=== PATIENT | male | born 2000 | race Caucasian/White ===

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

== ENCOUNTER 2025-02-27 11:34 | Observation (INO) | payer OTHER, SELFPAY ==
[2025-02-27] VITALS (16 sets, daily range): BP systolic 106–152; BP diastolic 61–100; PULSE 65–110; RESP 12–24; TEMP 36.6–37.1; O2SAT 99–100; BMI 25.2
--- NOTE | ~2025-02-27 | CT_ITS ---
EXAM: CT abdomen pelvis w con - 02/27/2025 13:15 CDT History: 24 years old Male with lower abdomina pain with bloody stools TECHNIQUE: Multidetector CT of the abdomen and pelvis with intravenous contrast. Coronal and sagitta l reformats were also provided for review. Automatic exposure control was used for this study. CONTRAST: 100 cc of Optiray 350 was used for this study. COMPARISON: None Available. FINDINGS: VISUALIZED CHEST: Visualized lungs are clear. ABDOMEN and PELVIS: LIVER: Subcentimeter hypodensity in the right hepatic lobe, too small to accurately characterize. GALLBLADDER: No calcified gallstones. BILE DUCTS: No dilatation. SPLEEN: Within normal limits. PANCREAS: Within normal limits. ADRENAL GLANDS: Within normal limits. KIDNEYS and URETERS: No hydronephrosis or hydroureter. No nephroureterolithiasis. URINARY BLADDER: Within normal limits. STOMACH and BOWEL: No abnormal bowel wall thickening. No obstruction. Multiple fluid-filled distended loops of small bowel are seen in the right lower quadrant in the pelvis, suggestive of terminal ilei tis. Appendix not visualized. REPRODUCTIVE ORGANS: Within normal limits. Multiple large ileocolic lymph nodes are seen, measuring u p to 2 cm. These are concerning for mesenteric adenitis. MESENTERY/PERITONEAL CAVITY: No free fluid or pneumoperitoneum. LYMPH NODES: No abdominal or pelvic lymphadenopathy. ABDOMINAL WALL: Within normal limits. VASCULATURE: Within normal limits. MUSCULOSKELETAL: Multilevel degenerative changes of the spine. IMPRESSION: Findings concerning for terminal ileitis and mesenteric adenitis, as detailed above. Reviewed, dictated and finalized at location A. IMPRESSION: Findings concerning for terminal ileitis and mesenteric adenitis, as detailed a christ.
--- OUTSIDE RECORDS SUMMARY | 2025-02-27 11:43 | XMS_ITS | Encounter Summary ---
Author Organization [facility] Address [address] [place] [address] Care Team Providers Care Cloth Finishing Range Tender Name Role Phone Felisa Cooper MD Primary Care Provider Nickie gamble Reason for Visit * Reason Onset Date Comments Medication Request 02/09/2018 Encounter Details Date Type Department Care Team (Late st Contact Info) Description 02/09/2018 Telephone [facility] - [facility] [place] [address] Michelle Richmond Medication Request Social History Tobacco Use Types Packs/Day Years Used Date Smoking Tobacco: Never Assessed Sex and Gender Information Value Date Recorded Sex Assigned at Not on file Legal Sex Male 6:[address] Gender Identity Not on file Sexual Orientation Not on file documented as of this encounter Miscellaneous Notes * Telephone Encounter - Felisa Cooper MD - 02/10/2018 12:43 PM CDT Rx for vyvanse 60mg daily orderd X3 for 3 month supply, mailed to home address. FU at [facility]. * Telephone Encounter - Michelle Richmond - 02/09/2018 12:48 PM CDT Mom is calling requesting a refill for Rx lisdexamfetamine (VYVANSE) 60 MG capsule to be mailed to her home at the address of: [address] [place] [id number] Next appt on 03/18/[address] Cooper documented in this encounter Plan of Treatment Not on file documented as of this encounter Visit Diagnoses Not on filedocumented in this encounter Additional Health Concerns Infection Onset Date Last Indicated Resolved Time COVID-19 Under Investigation 01/03/2020 01/03/2020 01/04/2020 12:34 AM CDT documented as of this encounter Care Teams Cloth Finishing Range Tender Relationship Specialty Start Date End Date Felisa Cooper MD Need new address PCP - General 11/28/10 documented as of this encounter
--- OUTSIDE RECORDS SUMMARY | 2025-02-27 11:43 | XMS_ITS | Encounter Summary ---
Author Organization [facility] Address [address] [place] [address] Care Team Providers Care Stonemason Supervisor Name Role Phone Felisa Cooper MD Primary Care Provider Nickie gamble Reason for Visit * Reason Onset Date Comments Question 04/26/2013 Encounter Details Date Type Department Care Team (Late st Contact Info) Description 04/26/2013 Telephone [facility] - [facility] [place] [address] Felisa Cooper MD Need new address Question Social History Tobacco Use Types Packs/Day Years Used Date Smoking Tobacco: Never Assessed Sex and Gender Information Value Date Recorded Sex Assigned at Not on file 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 * Telephone Encounter - Sol Voss - 04/26/2013 9:20 AM CDT MOM wants to update you on how his doing on medication. documented in this encounter Plan of Treatment Not on file documented as of this encounter Visit Diagnoses Not on filedocumented in this encounter Additional Health Concerns Infection Onset Date Last Indicated Resolved Time COVID-19 Under Investigation 01/03/2020 01/03/2020 01/04/2020 12:34 AM CDT documented as of this encounter Care Teams Stonemason Supervisor Relationship Specialty Start Date End Date Felisa Cooper MD Need new address PCP - General 11/28/10 documented as of this encounter
--- OUTSIDE RECORDS SUMMARY | 2025-02-27 11:43 | XMS_ITS | Encounter Summary ---
Author Organization [facility] Address [address] [place] [address] Care Team Providers Care Home Energy Consultant Name Role Phone Felisa Cooper MD Primary Care Provider Nickie gamble Encounter Details Date Type Department Care Team (Late st Contact Info) Description 07/14/2018 Telephone [facility] - [facility] [address] [place] [id number] Ann Agee Social History Tobacco Use Types Packs/Day Years Used Date Smoking Tobacco: Never Assessed Sex and Gender Information Value Date Recorded Sex Assigned at Not on file 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
--- OUTSIDE RECORDS SUMMARY | 2025-02-27 11:43 | XMS_ITS | Clinical Summary ---
Author Organization [facility] Address [address] [place] [address] Care Team Providers Care Curriculum And Assessment Coordinator Name Role Phone Unavailable Primary Care Provider Unavailabl e Social History Tobacco Use Types Packs/Day Years Used Date Smoking Tobacco: Never Assessed Sex and Gender Information Value Date Recorded Sex Assigned at Not on file Legal Sex Male 6:06 PM CDT Gender Identity Not on file Sexual Orientation Not on file Last Filed Vital Signs Vital Sign Reading Time Taken Comments Blood Pressure 106/74 02/21/2015 9:36 AM CDT Pulse 73 02/21/2015 9:36 AM CDT Temperature - - Respiratory Rate - - Oxygen Saturation - - Inhaled Oxygen Concentration - - Weight 43.6 kg (96 lb 2.1 oz) 02/21/2015 9:36 AM CDT Height 156.8 cm (5' 1.75) 02/21/2015 9:36 AM CD T Body Mass Index 17.72 02/21/2015 9:36 AM CDT Plan of Treatment Health Maintenance Due Date Last Done Comments Annual Physical 2005 HPV Vaccines (1 - Male 3-dos e series) 2017 Meningococcal B Vaccine (1 o f 2 - Standard) 2018 Hepatitis C 2020 DTaP, Tdap and Td Vaccines ( 1 - Tdap) 2021 Hepatitis B Vaccines (1 of 3 - 19+ 3-dose series) 2021 COVID-19 Vaccine ( - 2023-2 5 season) 2024 Meningococcal Vaccine Aged Out No chriss cecily eligible based on patient's age to complete this topic Pneumococcal Vaccine: Pediat rics (0 to 5 Years) and At-Risk Patients (6 to 49 Years) Aged Out No longer eligible b ased on patient's age to complete this topic RSV Immunizations Under 20 Months Aged Out No longer eligible based on patient's age to complete this topic
--- OUTSIDE RECORDS SUMMARY | 2025-02-27 11:43 | XMS_ITS | Encounter Summary ---
Author Organization [facility] Address [address] [facility] [address] Care Team Providers Care Piping Manager Name Role Phone Felisa Cooper MD Primary Care Provider Nickie gamble Encounter Details Date Type Department Care Team (Late st Contact Info) Description 07/14/2018 Telephone [facility] - [facility] [place] [address] Ann Agee Social History Tobacco Use Types Packs/Day Years Used Date Smoking Tobacco: Never Assessed Sex and Gender Information Value Date Recorded Sex Assigned at Not on file Legal Sex Male 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 He is doing well on vyvanse 60mg per day, no SE's. I cancelled the previous Rx's dated for June and July and reordered Rx's for today and in 30 days. The Rx's are in the mail to go out today. STANT THERAPY AIDE * Telephone Encounter - Ann Agee - 07/14/2018 12:01 PM CST Barry Schofield's, 18 y.o. male, mother is calling with concerns but would not any details just wanted to talk to Dr. Cooper about [place] Instructed that provider will call back at their earliest convenience. STANT THERAPY AIDE documented in this encounter Plan of Treatment Not on file documented as of this encounter Visit Diagnoses Not on filedocumented in this encounter Additional Health Concerns Infection Onset Date Last Indicated Resolved Time COVID-19 Under Investigation 01/03/2020 01/03/2020 01/04/2020 12:34 AM CDT documented as of this encounter Care Teams Piping Manager Relationship Specialty Start Date End Date Felisa Cooper MD Need new address PCP - General 11/28/10 documented as of this encounter
--- OUTSIDE RECORDS SUMMARY | 2025-02-27 11:43 | XMS_ITS | Encounter Summary ---
Author Organization [facility] Address [address] [place] [address] Care Team Providers Care Industrial Electrical Technician Name Role Phone Felisa Cooper MD Primary Care Provider Nickie gamble Reason for Visit * Reason Onset Date Comments Medication Problem 01/11/2018 Encounter Details Date Type Department Care Team (Late st Contact Info) Description 01/11/2018 Telephone [facility] - 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 Preferred alternatives include: LEVA ALBUTEROL AER ACT, PROAIR HFA AER, PROAIR REPSI AER. Last [facility] 03-18-2017 documented in this encounter Plan of Treatment Not on file documented as of this encounter Visit Diagnoses Not on filedocumented in this encounter Additional Health Concerns Infection Onset Date Last Indicated Resolved Time COVID-19 Under Investigation 01/03/2020 01/03/2020 01/04/2020 12:34 AM CDT documented as of this encounter Care Teams Industrial Electrical Technician Relationship Specialty Start Date End Date Felisa Cooper MD Need new address PCP - General 11/28/10 documented as of this encounter
--- OUTSIDE RECORDS SUMMARY | 2025-02-27 11:43 | XMS_ITS | Encounter Summary ---
Author Organization [facility] Address [address] [place] [address] Care Team Providers Care Pathology Laboratory Aides Teacher Name Role Phone Felisa Cooper MD Primary Care Provider Nickei gamble Reason for Visit * Reason Onset Date Comments MEDICATION REFILL 07/27/2012 Encounter Details Date Type Department Care Team (Late st Contact Info) Description 07/27/2012 Telephone [facility] - [facility] [place] [address] Felisa Cooper MD Need new address MEDICATION REFILL Social History Tobacco Use Types Packs/Day Years Used Date Smoking Tobacco: Never Assessed Sex and Gender Information Value Date Recorded Sex Assigned at Not on file Legal Sex Male 6:59 AM LETTER OF CREDIT DOCUMENT EXAMINER Gender Identity Not on file Sexual Orientation Not on file documented as of this encounter Miscellaneous Notes * Telephone Encounter - Jessica Coppola DO - 07/27/2012 9:48 AM CST 3 month scripts sent to address. I called mother and left message for her to make appt a few weeks before last dose in order to get refills. ER OF CREDIT DOCUMENT EXAMINER * Telephone Encounter - Pappademos, Dolley - 07/27/2012 9:23 AM CST Needs refill on vyvanase Please mail : [place] [phone] for 3mos. ER OF CREDIT DOCUMENT EXAMINER documented in this encounter Plan of Treatment Not on file documented as of this encounter Visit Diagnoses Diagnosis ADHD (attention deficit hyperactivity disorder)- Primary Attention deficit disorder with hyperactivity documented in this encounter Additional Health Concerns Infection Onset Date Last Indicated Resolved Time COVID-19 Under Investigation 01/03/2020 01/03/2020 01/04/2020 12:34 AM CDT documented as of this encounter Care Teams Pathology Laboratory Aides Teacher Relationship Specialty Start Date End Date Felisa Cooper MD Need new address PCP - General 11/28/10 documented as of this encounter
--- OUTSIDE RECORDS SUMMARY | 2025-02-27 11:43 | XMS_ITS | Clinical Summary ---
Author Organization 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,non-owned Affiliates and Associated Physician Practices is amultiple site organization consisting of ambulatory clinics and hospital sitesin [place], [place], [place] and [place]. This disclosure is being madepursuant to the Care Everywhere program and may not contain all information available regarding this patient. Last updated 18.[facility] Allergies Active Allergy Reactions Criticality Noted Date Comments Methylphenidate Hcl 12/23/2010 Sleep problems Medications * Be aware that medications may not be up to date on this document. Alwaysverify current medications with the patient. famotidine (PEPCID) 20 MG tabletIndication s:Gastroesophage al reflux disease without esophagitis Take 1 Tab by mouth 2 times daily 60 Tab 1 5 Active methylphenidate (RITALIN) 5 MG tablet Take 1 Tab by mouth every afternoon 30 Tab 0 6 Active methylphenidate (RITALIN) 5 MG tablet Take 1 Tab by mouth every afternoon 30 Tab 0 6 Active methylphenidate (RITALIN) 5 MG tablet Take 1 Tab by mouth every afternoon 30 Tab 0 6 Active benzoyl peroxide (BENZOYL PEROXIDE) 5 % washIndications: Acne, unspecified acne type Apply to affected area once daily Use as directed. 1 Bottle 7 Active albuterol HFA (PROVENTIL;DICK ARNAV;PROAIR) 108 (90 Base) MCG/ACT inhalerIndicatio ns:Asthma, exercise induced (HCC) Inhale 2 puffs by mouth every 4 hours as needed for Shortness of Breath, Wheezing or Cough (May also take 2 puffs 30 min prior to exercise) 2 Inhaler 3 9 Active Active Problems Problem Noted Date Diagnosed Date Vomiting, unspecified 10/12/2019 Assessment & Plan (10/12/2019 2:45 PM BARGE WORKER): Assessment: Patient c/o vomiting daily one to five times a day for 2 weeks with accompanying headache, sore throat, abdominal pain, and diarrhea with intermittent constipation. Pt also c/o mild intermittent left lower chest pain in rib area for last 2 weeks but no difficulty breathing, no hx of trauma. Pt with normal UOP, has been out with friends for extended periods of time during last 2 weeks, has been eating fast food, and on exam today appears well hydrated, has moist MM, no tachycardia, no weight loss, but mild LL abdominal pain and reproducible pain with palpation of left lower chest. Pt with hx of depression, bipolar d/o, ADHD, and defiant relationship with mother. He is also not doing well in school and seems to not want to attend school or complete homework. Pt's mother has concerns that he is fine when with friends but may be using sx's to avoid going to school. No hx of fever, URI sx's, change in diet, cigs/ETOH/drugs. Per mother pt had neg strep test at another medical office last week, and had normal labs per psychiatry 1-2 weeks ago. Pt is on vyvanse, prozac, and lithium (dose was increased 3-4 weeks ago). Plan: - [place] diet, hold dairy foods, monitor sx's and hydration status. - Stool culture and O&P ordered - Abdominal and Chest X-ray - Follow up on strep test results and labs from other clinic/psychiatry. Mother declined further lab work today. - FU with psychiatry and consider readjusting meds/lithium dose. - Continue counseling, mother and pt to work on relationship, pt to catch up on school work and school attendance. - FU in 1-2 weeks Mental and behavioral problem 06/01/2019 Assessment & Plan (07/06/2019 2:10 PM BARGE WORKER): Pt with recent [facility] inpatient Tx for SI, anxiety, anger management, now doing well with outpatient Tx. He is followed by psychiatry (in [place]), private counselor (in [place]), and school psychologist. He was dx'd with bipolar d/o and is currently on lithium and prozac, in addition to vyvanse for ADHD. His psychiatrist is going to manage all medications including vyvanse (which was reduced to 40mg qday) and next FU is Aug 2019. Pt is back in school and doing well academically and socially. Pt feels well today and is happy with home and school. Assessment & Plan (06/01/2019 3:31 PM CDT): I spoke with pt's mother on phone today and she wanted to update that in the past month Barry was having increased difficulty with anxiety, anger management, and had thoughts of SI. He saw a psychiatrist as an outpatient, was placed on lexapro but became more emotional. He was taken to [facility] for inpatient treatment and was there for 1 week, lexapro was d/c'd and he is now on prozac, doing much better since, and will be following up with a different psychiatrist as an outpatient. He also continues with counseling and regular meetings with psychologist at school, is also still on vyvanse. Mother will schedule FU appt in our clinic in 1 month for Men B and influenza vaccines, will also give update on pt's progress at that time. Episode of abnormal behavior 01/19/2019 Overview (04/06/2019): 01/19/19 Last week during an exam, pt felt numbness in Rt hand (dominant hand) and for few seconds didn't feel like himself, he was alert, awake, and remembers the entire episode, and didn't fee tired or sleepy after. He has been feeling normal with normal activity since then and mother agrees. He stopped his vyvanse 70mg but has been on 60mg daily since then. He has been on vyvanse 70mg for past 2 months and thinks the episode was related to the higher dose. He does have a hx of anxiety and sees a counselor regularly, is also scheduled for psychiatry eval this summer. Exam today wnl. Pt and mother prefer to cont on 60mg vyvanse, declined neuro eval and imaging at this point, but will consider if episode happens again. Plan FU for WCC in 2-3 months but if episode occurs again needs to FU isabel. 04/06/19 Pt had WCC and per pt and mother there have been no more episodes. Assessment & Plan (04/06/2019 10:27 PM CDT): No further episodes. Will continue to monitor. Assessment & Plan (01/19/2019 10:59 AM CDT): Last week during an exam, pt felt numbness in Rt hand (dominant hand) and for few seconds didn't feel like himself, he was alert, awake, and remembers the entire episode, and didn't fee tired or sleepy after. He has been feeling normal with normal activity since then and mother agrees. He stopped his vyvanse 70mg but has been on 60mg daily since then. He has been on vyvanse 70mg for past 2 months and thinks the episode was related to the higher dose. He does have a hx of anxiety and sees a counselor regularly, is also scheduled for psychiatry eval this summer. Exam today wnl. Pt and mother prefer to cont on 60mg vyvanse, declined neuro eval and imaging at this point, but will consider if episode happens again. Plan FU for WCC in 2-3 months but if episode occurs again needs to FU isabel. Acne 03/18/2017 Assessment & Plan (03/18/2017 9:33 AM CDT): Skin care reviewed, benzoyl peroxide wash Rx ordered. FU if pers sx's. Pectus carinatum 04/03/2016 Assessment & Plan (10/09/2016 12:15 PM BARGE WORKER): Pt saw CT surgery 03/2016, CXR wnl, consider brace or surgery prn increased sx's. Pt and mother holding off for now but will consider in future, no increased sx's currently. Assessment & Plan (04/03/2016 11:04 AM CDT): Pt with worsening pectus carinatum. It occasionally causes him some chest pain. No trouble breathing. - referral to CT surgery Adopted 03/21/2015 Assessment & Plan (03/21/2015 1:36 PM CDT): Pt recently found out from adopted mother that he was adopted, is dealing with information well per self and adopted mother. He is discussing information with counselor that he meets with weekly, is considering establishing relationship with biological mother and he has already met biological father. Adopted mother is supportive and has a good relationship with pt. Asthma, exercise induced 03/29/2014 Assessment & Plan (03/18/2017 9:45 AM CDT): Sx's well controlled with albuterol prn, Rx RF given, FU if increased sx's or use of albuterol. Assessment & Plan (10/09/2016 12:17 PM BARGE WORKER): Cont prn use for sx's, also rec 2 puffs 30 min prior to exercise, RF Rx ordered. FU if pers sx's. Assessment & Plan (04/03/2016 11:07 AM CDT): No recent exacerbations. He is considering starting track this year. He has albuterol to use prn - continue prn albuterol - monitor symptoms with exercise Assessment & Plan (03/21/2015 1:30 PM CDT): Has not had recent exacerbations, has not needed albuterol in a while, will cont to monitor clinically and may cont albuterol prn. Assessment & Plan (03/29/2014 12:33 PM CDT): Albuterol HFA with aerochamber trial, rec 2 puffs 30 minutes before activity. If sx's persist needs FU. Well child check 04/06/2013 Overview (04/06/2013): Normal growth and development, will monitor weight. Anticipatory guidance discussed, vaccines UTD but rec influenza vaccine when available. FU for next WCC in 1 year. Assessment & Plan (04/06/2019 11:13 PM CDT): Barry Schofield is here for his adolescent well child check and has normal growth with good interval weight gain and normal development, but hx of ADHD. Pt with hx of SA, discussed recs for abstinence and safe sex, pt declined STD testing, mother aware. Menactra #2 and Men B vaccine given. Dental referral for prevention-has dental home PHQ-9: Negative Age appropriate anticipatory guidance provided Return for next well child check; sooner if concerns arise. Assessment & Plan (03/18/2018 9:59 AM CDT): Barry Schofield is here for his adolescent well child check and has normal growth with good interval weight gain and normal development. Immunizations up to date Dental referral for prevention-has dental home Age appropriate anticipatory guidance provided Return for next well child check; sooner if concerns arise. Assessment & Plan (03/18/2017 9:44 AM CDT): Barry Schofield is here for his adolescent well child check and has normal growth with good interval weight gain and normal development. Immunizations up to date Has dental home Age appropriate anticipatory guidance provided Return for next well child check in 1 year; sooner if concerns arise. Assessment & Plan (04/03/2016 11:05 AM CDT): Barry Schofield is here for his adolescent well child check and has normal growth with good interval weight gain and normal development. Immunizations up to date Has dental home Age appropriate anticipatory guidance provided Return for next well child check; sooner if concerns arise. Assessment & Plan (03/21/2015 1:29 PM CDT): Barry Schofield is here for his adolescent well child check and has normal growth and development. Immunizations up to date No RF for heart disease/DM, mother declined lipid screening. Dental referral for prevention Age appropriate anticipatory guidance provided Return for next well child check in 1 year; sooner if concerns arise. Assessment & Plan (03/29/2014 12:34 PM CDT): Barry Schofield is here for his 13 y.o. well child check and has normal growth and development but need to monitor weight. Pt has had decreased appetite this summer whether on or off stimulant medication. Needs HPV after 04/15/14 and rec influenza vaccine in fall. CBC ordered bc pt with hx of bruising (resolved not) and mother with recent ITP and splenectomy. Dental referral for prevention Age appropriate anticipatory guidance provided Return for next well child check in 1 year but rec FU in 3 months for weight check, EIA and ADHD FU. ADHD (attention deficit hyperactivity disorder) 12/03/2010 Assessment & Plan (07/06/2019 2:13 PM BARGE WORKER): Pt was recently dx'd with bipolar d/o and is followed by psychiatry, counselor, and school psychologist. He was placed on lithum and prozac, and his vyvanse dose was changed to 40mg daily. His psychiatrist is going to manage his medications, including vyvanse. Mother will FU with updates prn. Assessment & Plan (04/06/2019 10:22 PM CDT): Barry has been doing well this summer with vyvanse dose of 60mg qday, no SE's, no weight issues, but he has had anger episodes when privileges are taken away. Barry is seeing a counselor every other week and he and his mother feel like the sessions are beneficial, especially with the anger episodes. Psychoeducational testing was done thru school at end of last school year and per pt's mother testing results showed high IQ and no LD, but +attention and executive function difficulty. Barry will be starting jc year in tomorrow with a 504 plan, will be in regular classes but with classroom modifications and his schedule will include a class period every day to help with organization and monitoring of assignment completion. Rec: 1) Continue vyvanse 60mg daily, RF Rx's given for 3 months supply, monitor for SE's. 2) Continue weekly counseling. 3) Consider psychiatry eval if persistent problems with anger or mood issues. 4) Continue 504 plan with classroom modifications. 5) Continue to keep in touch with teachers and monitor grades and school performance. 6) Continue positive reinforcement/privileges (screen time, video games, driving car, etc) for good grades and behavior. 7) FU in 3-6 months. Family lives 45 min away in [place], May call for RF in 3 months if pt doing well and no medication changes needed Assessment & Plan (11/17/2018 2:46 PM CDT): Barry has been on vyvanse 60mg daily for years and was doing well in school and home but recently has been struggling with focusing and turning homework in on time, partially because he feels medication is not working as well as before but also because he is unmotivated and hasn't been making an effort to get assignments turned in on time. He will do the work but just not turn it in. His test grades are better than his homework grades but he is failing most of his classes currently (S[place]i, math, science). He denies medication SE's. He has also been having more behavior issues at home, talking back to his mother and being disrespectful to her rules and concerns about school work. He has friends but doesn't socialize outside of school much, he denies ETOH or drug use. He is adopted and sees his biological mother occasionally, and has no issues with their relationship. He is close to his sister and bother in law (who is a positive male presence for him) and they have tried to help Barry with his school issues and life goals. Barry continues to see his counselor weekly and has good rapport with him, and he is trying to help Barry deal with any social issues and negative interactions with his mother. The counselor has concerns for depression and anxiety. Rec: 1) Increase Vyvanse to 70mg PO qday, monitor for SE's, mother will call to update and discuss RF in 3 weeks. 2) Continue weekly counseling. 3) Psychiatry eval. 4) Psychoeducational testing to be done at school. 5) Discuss with teachers about help with getting grades up, consider tutors, mother to give privileges (screen time, video games, driving car, etc) if grades improve. 6) FU in 3 months. Assessment & Plan (09/07/2018 12:58 PM BARGE WORKER): Pt was off vyvanse last summer, restarted few months ago and doing well, no SE's, had WCC 03/18/18 and no new issues. Family lives 45 min away, RF Rx vyvanse 60mg qday x3 sent to home today, FU in 3 months. Assessment & Plan (11/04/2017 11:55 AM CDT): Doing very well on vyvanse 60mg qday, no SE's, no behavior problems/attention issues/social issues at home or school, pt getting good grades. Will cont with current Rx, 3 month supply given today. Pt to also cont FU with counselor, usually sees few times per month for any anxiety or social concerns. Mother to call back in 3 months with update and Rx RF, FU in 6 months for appt. 11/04/17 Pt wanted to have trial off medication for last 3-4 weeks, but grades and school performance went down, no behavior concerns at school or home. Pt met with counselor yesterday and will continue to work on study skills, organizational skills and behavior modifications. Rec restarting vyvanse 60mg PO qday (Pt has 1 month supply of medication left, 3 month supply mailed to mother today, family lives about 45 min away), also recommend peer tutor at school to receive more 1 on 1 instruction to catch up with material that pt struggled with the last few weeks. FU for WCC and ADHD FU in 3 months. Assessment & Plan (10/09/2016 12:27 PM BARGE WORKER): Doing very well in school and home on vyvanse 60mg. No medication SE's, no behavioral or social issues, grades are good, and pt is happy. Pt with occasional chest pain, usually with anxiety or activity, exam today wnl and pt without pain. Pt will try calming/relaxation techniques and will restart albuterol prn for EIA. If still pers chest pain rec EKG, future order placed and mother will call if pers sx's. 3 month supply of vyvanse ordered and rx's given to mother. She will call back in 3 months for update/RF. FU in 6 months for WCC and ADHD FU. Assessment & Plan (04/03/2016 11:07 AM CDT): 15 year old with ADHD. Currently well controlled with vyvanse. He denies any side effects. Mom has not used the lunchtime ritalin. She has it at home and is going to decide if he needs it once school starts. - provided 3 refills of vyvanse - mom follows up by phone in 3 months and will schedule a med check in 6 months. Assessment & Plan (10/03/2015 9:36 AM BARGE WORKER): Behavior and school are doing well. Decreased concentration while doing homework in the afternoon. No current side effects. - Continue 60 mg vyvanse daily - Add 5 mg ritalin in the afternoon to help with homework time - Mom will call if any problems. - Call in 3 months for refills and return to clinic in March school manager starts Assessment & Plan (03/21/2015 1:28 PM CDT): Pt doing well on vyvanse 60mg PO qday, weight stable, no SE's, grades were good at end of year, no behavioral issues. Pt still meeting with couselor every week and sessions going well. Plan to cont current dose of vyvanse, 3 month Rx given, FU in 3-4 months, sooner if issues or concerns. Assessment & Plan (12/13/2014 12:27 PM CDT): Pt still doing well on vyvanse 60mg every AM, weight stable, no new side effects but rec monitor occasional neck movements and mother to monitor with 1 week trial off vyvanse. Pts grades in school are good but he has had few episodes of increased anger. Per mother counseling/therapist has helped and he will continue ever other week. 3 month supply of vyvanse given, FU in 3 months for WCC and ADHD FU, mother to call sooner if concerns. Assessment & Plan (2014 12:32 PM BARGE WORKER): Doing well on vyvanse 60mg daily, no SE's, dong well in school, and no behavioral issues, weight also improved. Pt may have new onset tic but per pt and mom does not appear to be associated with vyvanse at this time, may have to consider a longer term trial off medication for more than few days but mother. Pt's anger issues also better controlled now and pt cont with weekly tx sessions with psychologist/counselor/therapist. Rx RF for vyvanse given for 3 month supply. FU in 3-6months. Assessment & Plan (03/29/2014 12:27 PM CDT): Doing well on vyvanse 60mg daily, no SE's, no behavior problems at home this summer. Pt's anger issues also better controlled now and pt cont with weekly tx sessions with psychologist. Rx RF for vyvanse given for 3 month supply. FU for appt in 3 months, need to monitor weight. Resolved Problems Problem Noted Date Diagnosed Date Resolved Date Cough 01/03/2020 01/31/2020 Assessment & Plan (01/03/2020 3:17 PM CDT): Barry Schofield is a 19 year old male who presented with 3-4 days of sore thorat, emesis, diarrhea, cough and shortness of breath. T max of 99.4. 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 On exam, erythema was noted in posterior oropharnyx so strep swab was ordered. Strep was negative. He was discharged home with supportive care measures and letter given for work to be off till 10 days of start of symptoms AND 3 days of resolution of symptoms. Folliculitis 10/09/2016 03/18/2017 Assessment & Plan (10/09/2016 12:16 PM BARGE WORKER): Mild folliculitis rash on lower abdom in waistline area, has not responded to OTC neosporin. Rx for bactroban ordered for tid use X1 week. FU if pers sx's. URI (upper respiratory infection) 10/09/2016 10/23/2016 Assessment & Plan (10/09/2016 12:26 PM BARGE WORKER): Pt has had nasal congestion and some thick d/c for last 2 weeks but improving now. No hx of fever, had mild ST last week but resolved now, pt with normal activity/sleep/PO. If increased/pers sx's may consider Abx Tx for sinusitis but cont supportive care for now. Costochondral chest pain 10/03/2015 Assessment & Plan (10/03/2015 9:37 AM BARGE WORKER): Lower rib pain that increases with deep breaths and palpation. - Ibuprofen PRN for pain Periumbilical abdominal pain 05/23/2015 10/09/2016 Overview (05/24/2015): Assessment & Plan (10/03/2015 9:38 AM BARGE WORKER): Mild abdominal pain and frequent soft stools. No further blood in stools. Normal abdominal exam. - Continue pepcid - Advised mom to keep a diary to help identify a possible stress/anxiety etiology Assessment & Plan (05/23/2015 12:34 PM CDT): Pt with mild mid periumbilic abdominal pain after eating for last few weeks, sometimes pt feels pressure in upper abdom/lower chest like heartburn, pain and discomfort usually resolve with in 30 minutes. Pt is able to attend school, PE and other daily activities. Exam wnl today. Rec abdom pain diary, bland diet, pepcid trial FU in 2 weeks by phone if pers sx's. Pt also with 1 episode of red stool (?blood) last week when had large hard BM but since then BMs have been normal and soft daily and no more blood in stool. Rx and quiac cards given to mother, if stools are red again rec checking stool guiac. Heel pain, bilateral 05/23/2015 017 Assessment & Plan (05/23/2015 2:00 PM CDT): Pain in heels (Rt >Lt) for last few weeks after running. No known trauma or injury, pt able to perform all daily activities, walk and run without problems, attend PE. Pt wears high top sneakers. Exam wnl today except mild pain with palpation of heels . Rec rest for 1 week, insert gel shoe soles in shoes, motrin prn. FU if pers pain. Ear pain 12/13/2014 10/09/2016 Assessment & Plan (12/13/2014 12:39 PM CDT): Pt with ear pain and decreased hearing on Rt side for past month, no hx of trauma/fever/URI sx's. Rt. EAC irrigated and large amount of cerumen removed, hearing exam and clinical exam of TM and EAC wnl after cerumen removal. Neck pain 2014 10/09/2016 Assessment & Plan (03/21/2015 1:30 PM CDT): Resolved. Assessment & Plan (12/13/2014 12:39 PM CDT): Probably musculoskeletal and related to position of head and neck while using electronic devices. C-spine x-rays done at last OV wnl. Rec PT, decreasing electronic device usage. Pt also still with occasional neck movements but they have decreased recently, if sx's persist Rec 1 week trial off meds. Assessment & Plan (2014 12:44 PM BARGE WORKER): No known trauma and pt has not had limitations to activity or daily routine. C- spine x-ray pending, monitor sleep positions and daily activities that may cause strain on neck (heavy back pack, neck strain while using electronics), may try tylenol/motrin prn. Pt also with possible tic of head/neck movement to the right side that per patient are active movements to try and relieve neck pain but mother thinks these movements are involuntary. Will monitor but Neck pain may either be a factor in neck movements or a consequence of frequent neck movements. Per pt the neck pain and neck movements occur even when he's not on vyvanse but rec considering trial of holding vyvanse for 1 week and monitoring neck sx's. Will FU by phone in 2 weeks. Chest pain 11/21/2013 12/13/2014 Assessment & Plan (12/14/2013 1:32 PM CDT): Resolved but will monitor and pt to inform mother if any further chest pain/palpitations, especially since pt on stimulant med. Assessment & Plan (11/21/2013 4:23 PM CDT): History and exam not concerning for cardiac or pulmonic process. Reproducible with palpation which is consistent with musculoskeletal pain such as costochondritis. Also likely an anxiety component since only happens with running and states does not like running. Cannot rule out CHERYL as well since does have some relief with drinking water and metallic taste in mouth. Plan: - Ibuprofen 200mg q8 hours with food x 1 week then PRN - If symptoms continue could consider trial of PPI - Will follow-up PRN Not up to date with scheduled immunizations 11/21/2013 03/29/2014 Assessment & Plan (12/14/2013 1:40 PM CDT): Pt was almost 13 years at last [facility] 03/2013 so immunizations not given. Will give Tdap, menactra, HPV today. Fu for [facility] 03/2014 and will give HPV #2 then (pt lives [place] away in [place] so unable to FU in 2 months for vaccine). Assessment & Plan (11/21/2013 4:28 PM CDT): Has not received 13 year immunizations yet. Due for 13 year well check as well. Plan: - Would like to wait until well check to receive immunizations - Encouraged to schedule well check as soon as possible Encounter for medication monitoring 09/30/2012 12/13/2014 Overview (04/06/2013): Pt doing well on vyvanse 60mg PO qAM, need to monitor weight and growth, no reported SE's. No behavioral issues at home or in other social situations. Will cont current dose of vyvanse and FU in 3-6 months. Assessment & Plan (03/29/2014 12:28 PM CDT): Doing well on vyvanse 60mg daily, no SE's, no behavior problems at home this summer. Pt's anger issues also better controlled now and pt cont with weekly tx sessions with psychologist. Rx RF for vyvanse given for 3 month supply. FU for appt in 3 months, need to monitor weight Assessment & Plan (12/14/2013 1:41 PM CDT): Pt doing well academically on vyvanse 60mg, no reported SE's and weight stable, will cont medication and new Rx's given. But pt with recurrent anger/behavioral issues and possible anxiety. Rec Psychiatry eval that mother has already set up and cont psychology therapy sessions for pt. FU 03/2014 for [facility]CC and FU ADHD. Encounter for medication monitoring 12/03/2011 04/06/2013 Overview (05/19/2012): Patient currently on Vyvanse 60 mg daily. He is doing well in school and his medication is lasting until 5-5:30pm. Patient is having difficulty with anger and emotions when the medication wears off. He is not having any trouble falling asleep, no change in appetite or weight. Is growing well. 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 Discussed with patient and his mother that he may take the medication later in the morning on the weekends if he has an event later in the day that he needs to attend. Encouraged returning to counseling to help with emotions and impulse control. FU by phone for refills and updates, OV for WCC and ADHD med FU in 3-6 months. Pt's Mother given 3 separate Rx's for 3 month supply. Molluscum contagiosum 12/03/20112012 Overview (12/03/2011): Rec monitor, may apply OTC neosporin to lesions that are excoriated and red. If pers for more than 6-12 months may consider derm referral. Encounter for medication monitoring 07/10/2011 04/06/2013 Overview (07/10/2011): Will increase vyvanse to 50mg PO qAM and monitor sx's and for possible side effects. Mother to continue psychology FU weekly, maintain structure at home and maximize one on one time with activities and education when possible. Rx for 1 month given, mother to FU by phone in 2 weeks, rec OV FU for ADHD in 3-6months. Medication monitoring encounter 03/12/2011 04/06/2013 Overview (03/12/2011): Will increase vyvanse to 40mg PO qAM and monitor sx's and for possible side effects. Mother to continue psychology FU weekly, maintain structure at home and maximize one on one time with activities and education when possible. Rx's for 3 months given, mother to FU by phone if problems in next few weeks, rec OV FU for ADHD in 3- 6months. Immunizations Immunization Administration Dates Next Due DTaP VACCINE IM (6wk-6yrs) 07/28/2010,,2002,10/25,2002 HEP A PEDS 2 DOSE 10/08/2009,04/06/2009 HEP B VACCINE, PED/ADOL 01/05/2003,2002, HIB BOOSTER 2002, 3,2002,08/29 Human Papilloma Virus Gee valent Vaccine 2014,01/30/2014,12/14/2013 INFLUENZA VACCINE 07/28/2010,05/29/2007,06/26/20 04 INFLUENZA VACCINE, QUADR. (F LUZONE; FLULAVAL; FLUARIX; AFLURIA QUADRIVALENT; 6MO+), 0.5 ML (IIV4) 07/06/2019 Influenza Nasal 05/19/2012,07/10/2011 BRYSON VACCINE QUAD LAIV4 PF NASAL 2014 MENINGOCOCCAL ACWY (MCV4P) VAC IM 04/06/2019, MMR 07/28/2010,09/21/2003 Meningococcal B Recombinant 2 Dose, IM 9,04/06/2019 PNEUMOCOCCAL CONJ, PEDS 09/21/2003,12/21,2002,08/29 POLIO IPV 07/28/2010, 3,2002,08/29 TDAP (7yrs+) 12/14/2013 VARICELLA 07/28/2010,2003 Social History Tobacco Use Types Packs/Day Years Used Date Smoking Tobacco: Never Alcohol Use Standard Drinks/Week Comments Never 0 (1 standard drink = 0.6 oz pur e alcohol) AUDIT-C Answer Date Recorded Frequency of Alcohol Consumption Never 04/06/2019 Average Number of Drinks Not on file 019 Frequency of Binge Drinking Not on file 03/24 Sex and Gender Information Value Date Recorded Sex Assigned at Not on file 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 Gender Identity Not on file Sexual Orientation Not on file Last Filed Vital Signs Vital Sign Reading Time Taken Comments Blood Pressure 130/74 01/03/2020 1:27 PM CDT Pulse 108 01/03/2020 1:27 PM CDT Temperature 37.2 C (98.9 F) 01/03/2020 1:27 PM CDT Respiratory Rate 20 01/03/2020 1:27 PM CDT Oxygen Saturation 97% 01/03/2020 1:27 PM CDT Inhaled Oxygen Concentration - - Weight 90 kg (198 lb 6.6 oz) 01/03/2020 1:27 PM CDT Height 175.1 cm (5' 8.94) 10/12/2019 9:52 AM CS T Body Mass Index - - Plan of Treatment Health Maintenance Due Date Last Done Comments HIV SCREENING 2017 HEPATITIS C SCREENING 06/24/2020 DTAP/TDAP/TD VACCINES (7 - Td or Tdap) 12/15/2023 12/14/2013, 07/28/2010, 09/21/2003, Additional history exists COVID-19 VACCINE ( season) 2024 DEPRESSION SCREENING 08/24/2024 04/06/2019, 03/18/2018, 03/18/2017, Additional history exists INFLUENZA VACCINE (Season Ended) 2025 07/06/2019, 2014, 05/19/2012, Additional history exists ZOSTER VACCINE (1 of 2) 2052 HIB VACCINE Aged Out 2002, 11/2002, 2002, Additional history exists No longer eligible based on patient's age to complete this topic HEPATITIS B VACCINE Completed 01/05/2003, 2002, 2002 PNEUMOCOCCAL VACCINE Completed 09/21/2003, 2002, 2002, Additional history exists HPV VACCINE Completed 2014, 04/2014, 12/14/2013 MENINGOCOCCAL GROUPS A/C/Y/W VACCINE Completed 04/06/2019, 12/14/2013 MENINGOCOCCAL (Group B) VACCINE SHARED DECISION-MAKING Completed 07/06/2019, 04/06/2019 Insurance HEALTHLINK HEALTHLINK Care Teams High Pressure Boiler Operator Relationship Specialty Start Date End Date Felisa Cooper MD Need new address PCP - General 11/28/10
--- OUTSIDE RECORDS SUMMARY | 2025-02-27 11:43 | XMS_ITS | Clinical Summary ---
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 Gender Identity Not on file Sexual Orientation Not on file Plan of Treatment Health Maintenance Due Date Last Done Comments Hepatitis C Virus (HCV) Screening 2002 TdaP Immunization 2002 Human Papillomavirus (HPV) Immunization (1 - Male 3-dose series) 2017 Meningococcal B Immunization (1 of 2 - Standard) 2018 Hepatitis B Immunization (1 of 3 - 19+ 3-dose series) 2021 Influenza Immunization (#1) 2024 SARS-COV-2 Immunization (2 - season) 2024 12/01/2020 Respiratory Syncytial Virus (RSV) Immunization (Adult) (1 - 1-dose 75+ series) 2077 Meningococcal Immunization (ACWY) Aged Out No longer eligible based on patient's age to complete this topic Pneumococcal Immunization Combined Aged Out No longer eligible based on patient's age to complete this topic Rotavirus Immunization Aged Out No lo nger eligible based on patient's age to complete this topic
[2025-02-27 12:34] LABS: Hematocrit 48.0 % (42.0-52.0); Hemoglobin 15.1 g/dL (14.0-18.0); Immature Granulocyte Percent A 0.5 % (0-0.5); Lymphocytes Absolute Auto 3.80 K/mm3 (0.9-3.2); Mean Corpuscular HGB Conc 31.5 g/dl (32-36); Mean Corpuscular Hemoglobin 30.7 pg (26-34); Mean Corpuscular Volume 97.6 fl (80-100); Nucleated Red Blood Cells Absolute Auto 0.000 K/mm3 (0.0-0.012); Nucleated Red Blood Cells Perc 0.0 % (0.0-0.2); Platelet Count Result 198 k/mm3 (150-375); Red Blood Count 4.92 M/mm3 (4.6-6.20); White Blood Count 10.8 K/mm3 (4.5-10.0)
[2025-02-27 12:47] LABS: Alanine Aminotransferase 29 U/L (6-50); Albumin Level 4.6 g/dL (3.5-5.1); Alkaline Phosphatase 72 U/L (38-126); Anion Gap 11 mmol/L (4-12); Aspartate Amino Transferase 32 U/L (17-59); Bilirubin,Total 0.3 mg/dL (0.2-1.3); Blood Urea Nitrogen 4 mg/dL (9-20); Calcium 9.7 mg/dL (8.4-10.2); Carbon Dioxide 26 mmol/L (22-30); Chloride 105 mmol/L (98-107); Estimated CRCL calculation 152 ml/min; Estimated Glomerular Filt Rate > 60; Glucose 66 mg/dL (65-110); Potassium 3.3 mmol/L (3.4-5.0); Sodium 142 mmol/L (137-145); Total Protein 7.8 g/dL (6.3-8.2)
[2025-02-27 12:49] LABS: INR 1.1; Partial Thromboplastin Time 25.8 Seconds (22.3-36.8); Prothrombin Time 14.2 Seconds (11.1-14.7)
--- OUTSIDE RECORDS SUMMARY | 2025-02-27 13:22 | XMS_ITS | Clinical Summary ---
Author Organization [facility] [place] [facility] Address [address] [place] [id number] Care Team Providers Care Systems Developer Name Role Phone Unavailable Primary Care Provider [...]
--- OUTSIDE RECORDS SUMMARY | 2025-02-27 13:22 | XMS_ITS | Clinical Summary ---
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
--- OUTSIDE RECORDS SUMMARY | 2025-02-27 13:22 | XMS_ITS | Encounter Summary ---
Author Organization [facility] Address [address] [place] [address] Care Team Providers Care Heating Worker Name Role Phone Felisa Cooper MD Primary Care Provider Nickie gamble Encounter Details Date Type Department Care Team (Late st Contact Info) Description 07/14/2018 Telephone [facility] - [facility] [address] [place] [id number] Ann Agee Social History Tobacco Use Types Packs/Day Years Used Date Smoking Tobacco: Never Assessed Sex and Gender Information Value Date Recorded Sex Assigned at Not on file 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
--- OUTSIDE RECORDS SUMMARY | 2025-02-27 13:22 | XMS_ITS | Encounter Summary ---
Author Organization [facility] Address [address] [facility] [place] [address] Care Team Providers Care Control Panel Assembler Name Role Phone Felisa Cooper MD Primary Care Provider Nickie gamble Encounter Details Date Type Department Care Team (Late st Contact Info) Description 07/14/[address] 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 NDARY SCHOOL TEACHER * Telephone Encounter - Ann Agee - 07/14/2018 12:01 PM CST Barry Schofield's, 18 y.o. male, mother is calling with concerns but would not any details just wanted to talk to Dr. Cooper about [place] Instructed that provider will call back at their earliest convenience. NDARY SCHOOL TEACHER documented in this encounter Plan of Treatment Not on file documented as of this encounter Visit Diagnoses Not on filedocumented in this encounter Additional Health Concerns Infection Onset Date Last Indicated Resolved Time COVID-19 Under Investigation 01/03/2020 01/03/2020 01/04/2020 12:34 AM CDT documented as of this encounter Care Teams Control Panel Assembler Relationship Specialty Start Date End Date Felisa Cooper MD Need new address PCP - General 11/28/10 documented as of this encounter
--- OUTSIDE RECORDS SUMMARY | 2025-02-27 13:22 | XMS_ITS | Encounter Summary ---
Author Organization [facility] Address [address] [place] [address] Care Team Providers Care Inspection Engineer Name Role Phone Felisa Cooper MD Primary Care Provider Nickie gamble Reason for Visit * Reason Onset Date Comments Question 04/26/2013 Encounter Details Date Type Department Care Team (Late st Contact Info) Description 04/26/[address] 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
--- OUTSIDE RECORDS SUMMARY | 2025-02-27 13:22 | XMS_ITS | Encounter Summary ---
Author Organization [facility] Address [address] [place] [address] Care Team Providers Care Automation Lead Name Role Phone Felisa Cooper MD Primary Care Provider Nickie gamble Reason for Visit * Reason Onset Date Comments Medication Request 02/09/2018 Encounter Details Date Type Department Care Team (Late st Contact Info) Description 02/09/2018 Telephone [facility] - [facility] Pediatrics [facility] [place] [address] Michelle [place] Medication Request Social History Tobacco Use Types Packs/Day Years Used Date Smoking Tobacco: Never Assessed Sex and Gender Information Value Date Recorded Sex Assigned at Not on file 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 FU at [facility]. * Telephone Encounter - Michelle Richmond - 02/09/2018 12:48 PM CDT Mom is calling requesting a refill for Rx lisdexamfetamine (VYVANSE) 60 MG capsule to be mailed to her home at the address of: [address] [place] [id number] Next appt on 03/18/[address] Cooper documented in this encounter Plan of Treatment Not on file documented as of this encounter Visit Diagnoses Not on filedocumented in this encounter Additional Health Concerns Infection Onset Date Last Indicated Resolved Time COVID-19 Under Investigation 01/03/2020 01/03/2020 01/04/2020 12:34 AM CDT documented as of this encounter Care Teams Automation Lead Relationship Specialty Start Date End Date Felisa Cooper MD Need new address PCP - General 11/28/10 documented as of this encounter
--- OUTSIDE RECORDS SUMMARY | 2025-02-27 13:22 | XMS_ITS | Encounter Summary ---
Author Organization [facility] Address [address] [place] [address] Care Team Providers Care Wave Soldering Machine Operator Name Role Phone Felisa Cooper MD Primary Care Provider Nickie gamble Reason for Visit * Reason Onset Date Comments Medication Problem 01/11/2018 Encounter Details Date Type Department Care Team (Late st Contact Info) Description 01/11/2018 Telephone [facility] Pediatrics - [facility] [place] [address] Michelle [place] Medication Problem Social History Tobacco Use Types Packs/Day Years Used Date Smoking Tobacco: Never Assessed Sex and Gender Information Value Date Recorded Sex Assigned at Not on file 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 Preferred alternatives include: LEVA ALBUTEROL AER ACT, PROAIR HFA AER, PROAIR REPSI AER. Last [facility] 03-18-2017 documented in this encounter Plan of Treatment Not on file documented as of this encounter Visit Diagnoses Not on filedocumented in this encounter Additional Health Concerns Infection Onset Date Last Indicated Resolved Time COVID-19 Under Investigation 01/03/2020 01/03/2020 01/04/2020 12:34 AM CDT documented as of this encounter Care Teams Wave Soldering Machine Operator Relationship Specialty Start Date End Date Felisa Cooper MD Need new address PCP - General 11/28/10 documented as of this encounter
--- OUTSIDE RECORDS SUMMARY | 2025-02-27 13:22 | XMS_ITS | Encounter Summary ---
Author Organization [facility] Address [address] [place] [address] Care Team Providers Care Home Staging Specialist Name Role Phone Felisa Cooper MD Primary Care Provider Nickie gamble Reason for Visit * Reason Onset Date Comments MEDICATION REFILL 07/27/2012 Encounter Details Date Type Department Care Team (Late st Contact Info) Description 07/27/2012 Telephone [facility] - [facility] [place] [address] Felisa Cooper MD Need new address MEDICATION REFILL Social History Tobacco Use Types Packs/Day Years Used Date Smoking Tobacco: Never Assessed Sex and Gender Information Value Date Recorded Sex Assigned at Not on file 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 I called mother and left message for her to make appt a few weeks before last dose in order to get refills. DE SALES TRAINER * Telephone Encounter - Pappademos, Dolley - 07/27/2012 9:23 AM CST Needs refill on vyvanase Please mail : [place] [phone] for 3mos. DE SALES TRAINER documented in this encounter Plan of Treatment Not on file documented as of this encounter Visit Diagnoses Diagnosis ADHD (attention deficit hyperactivity disorder)- Primary Attention deficit disorder with hyperactivity documented in this encounter Additional Health Concerns Infection Onset Date Last Indicated Resolved Time COVID-19 Under Investigation 01/03/2020 01/03/2020 01/04/2020 12:34 AM CDT documented as of this encounter Care Teams Home Staging Specialist Relationship Specialty Start Date End Date Felisa Cooper MD Need new address PCP - General 11/28/10 documented as of this encounter
--- OUTSIDE RECORDS SUMMARY | 2025-02-27 13:22 | XMS_ITS | Clinical Summary ---
Author Organization [facility] Address [address] [place] [address] Care Team Providers Care Turbine Inspector Name Role Phone Felisa Cooper MD Primary Care Provider Nickie gamble Source Comments [facility],non-owned Affiliates and Associated Physician Practices is amultiple site organization consisting of ambulatory clinics and hospital sitesin [place], [place], [place]. This disclosure is being madepursuant to the Care Everywhere program and may not contain all information available regarding this patient. Last updated 18.[facility] Allergies Active Allergy Reactions Criticality Noted Date [...] 10/12/2019 Assessment & Plan (10/12/2019 2:45 PM MARBLE CUTTER OPERATOR): Assessment: Patient c/o vomiting daily one to [...] was increased 3-4 weeks ago). Plan: - Dale diet, hold dairy foods, monitor sx's and [...] 06/01/2019 Assessment & Plan (07/06/2019 2:10 PM MARBLE CUTTER OPERATOR): Pt with recent [place] inpatient Tx for SI, anxiety, anger management, now doing well with outpatient Tx. He [place] followed by psychiatry (in [place]), private counselor ([place]), and school psychologist. He was dx'd with [...] became more emotional. He was taken to [facility] for inpatient treatment and was there for [...] 04/03/2016 Assessment & Plan (10/09/2016 12:15 PM MARBLE CUTTER OPERATOR): Pt saw CT surgery 03/2016, CXR wnl, [...] albuterol. Assessment & Plan (10/09/2016 12:17 PM MARBLE CUTTER OPERATOR): Cont prn use for sx's, also rec [...] 12/03/2010 Assessment & Plan (07/06/2019 2:13 PM MARBLE CUTTER OPERATOR): Pt was recently dx'd with bipolar d/o [...] months. Family lives 45 [place] away in [place], May call for RF in 3 months [...] is failing most of his classes currently ([employer], math, science). He denies medication SE's. He [...] months. Assessment & Plan (09/07/2018 12:58 PM MARBLE CUTTER OPERATOR): Pt was off vyvanse last summer, restarted [...] lives about 45 min away), also recommend corporate tutor at school to receive more 1 on 1 instruction to catch up with material that pt struggled with the last few weeks. FU for WCC and ADHD FU in 3 months. Assessment & Plan (10/09/2016 12:27 PM MARBLE CUTTER OPERATOR): Doing very well in school and home [...] months. Assessment & Plan (10/03/2015 9:36 AM MARBLE CUTTER OPERATOR): Behavior and school are doing well. Decreased [...] concerns. 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 Rx for bactroban ordered for tid use X1 week. FU if pers sx's. URI (upper respiratory infection) 10/09/2016 10/23/2016 Assessment & Plan (10/09/2016 12:26 PM MARBLE CUTTER OPERATOR): Pt has had nasal congestion and some thick d/c for last 2 weeks but improving now. No hx of fever, had mild ST last week but resolved now, pt with normal activity/sleep/PO. If increased/pers sx's may consider Abx Tx for sinusitis but cont supportive care for now. Costochondral chest pain 10/03/2015 Assessment & Plan (10/03/2015 9:37 AM MARBLE CUTTER OPERATOR): Lower rib pain that increases with deep breaths and palpation. - Ibuprofen PRN for pain Periumbilical abdominal pain 05/23/2015 10/09/2016 Overview (05/24/2015): Assessment & Plan (10/03/2015 9:38 AM MARBLE CUTTER OPERATOR): Mild abdominal pain and frequent soft stools. [...] meds. Assessment & Plan (2014 12:44 PM MARBLE CUTTER OPERATOR): No known trauma and pt has not [...] Pt was almost 11 years at last [facility] 03/2013 so immunizations not given. Will give Tdap, menactra, HPV today. Fu for [facility] 03/2014 and will give HPV #2 then (pt lives [place] away in [place] so unable to FU in 2 months [...] on file Legal Sex Male 6:59 AM MARBLE CUTTER OPERATOR Gender Identity Not on file Sexual [...] 07/06/2019, 04/06/2019 Insurance HEALTHLINK HEALTHLINK Care Teams Turbine Inspector Relationship Specialty Start Date End Date Felisa Cooper MD Need new address PCP - General 11/28/10
[2025-02-27] MEDS: SODIUM CHLORIDE 0.9% IV 1,000 ML 999 ML IV CONT (13:23)
[2025-02-27] MEDS: fentaNYL CITRATE INJ (*CRX) 100 MCG/2 ML VIAL 25 MCG IV PUSH (13:25)
--- NOTE | 2025-02-27 14:02 | ED_ITS ---
HPI - Abdominal Pain General Chief Complaint: Abdominal Pain Stated Complaint: abd pain Time Seen by Provider: 02/27/25 12:38 History of Present Illness HPI narrative: Pt presents with lower abdominal pain and bloody stools since yesterday. Pt denies fever. Pt denies recent trips or drinking out of streams. Pt denies fever or vomiting. Related Data Home Medications ?Medication ?Instructions ?Recorded ?Confirmed ?Last Taken ?Type cetirizine 10 mg capsule (Zyrtec) 10 mg PO HS 09/09/21 02/27/25 Unknown History multivitamin 1 tablet PO DAILY 09/09/21 02/27/25 Unknown History Allergies Allergy/AdvReac Type Severity Reaction Status Date / Time methylphenidate (From AdvReac Severe night Verified 02/27/25 12:41 Concerta) jones Review of Systems 2 Review of Systems: All systems reviewed & are unremarkable except as noted in HPI and below PMFSH Past Medical History Medical History Insomnia Bipolar 1 disorder Surgical History Surgical History H/O removal of cyst earlobe removal H/O adenoidectomy 06/2006 Hx of tonsillectomy 06/2006 Family History Family History Grandparent Acute myocardial infarction Diabetes mellitus Mother Cerebrovascular accident Depression Diabetes mellitus Hypertension Father Depression Social History Social History Smoking status: Current every day smoker Tobacco type: e-cigarettes/vaping Second hand tobacco smoke exposure: Yes Alcohol intake: never Substance use: current Substance use type: marijuana Do You Feel Safe in your Home?: Yes Lack of Transportation: No Lack of Food: Never True Current Housing: I Have Housing Concerned About Future Housing: No Difficulty Paying Gas/Electric Bills: No Difficulty Paying for Meds: No Currently Unemployed: No Education: High School Diploma/GED Difficulty w/ Childcare or Family Care: No Living arrangements: with family Occupation/Education: occupation Gender identity (if verbalized by the patient): Male Sexual Orientation (if Verbalized by the Patient): Straight or Heterosexual Spiritual care concerns: No Agree to blood products: Yes Exam 2 Const: General: healthy appearing and no acute distress Nutritional Appearance: well nourished Orientation/consciousness: patient oriented x3 Limitations: no limitations Eyes: Pupils: Equal, round and reactive pupils present EOM: EOMs intact bilaterally Chest: Chest palpation & inspection: normal inspection of the chest Resp: Effort & Inspection: normal respiratory effort Auscultation: clear to auscultation bilaterally Cardio: Rate: regular rate Rhythm: regular rhythm GI: GI Palp: Yes Soft to palpation and Yes Tenderness to palpation present (GI) (lower abd both left and right lq) Auscultation: normal bowel sounds Skin: General skin exam: normal color Rashes: no rashes Wounds: no wounds Neuro: General: patient oriented x3, moves all extremities, no meningeal signs, no focal motor deficits and CN's II-XI intact bilaterally Speech: n ormal speech Extrem: General: normal to inspection and no clubbing, cyanosis or edema Psych: Mental Status: mental status grossly normal Affect: normal affect Attitude: cooperative Course Vital Signs Vital signs: Vital Signs Temperature 98.0 F 02/27/25 11:40 Pulse Rate 110 H 02/27/25 11:40 Respiratory Rate 19 02/27/25 11:40 Blood Pressure 136/74 02/27/25 11:40 Pulse Oximetry 100 02/27/25 11:40 Oxygen Delivery Room Air 02/27/25 11:40 Temperature 97.9 F 02/27/25 21:22 Pulse Rate 95 02/27/25 21:22 Respiratory Rate 20 02/27/25 21:22 Blood Pressure 127/65 02/27/25 21:22 Pulse Oximetry 99 02/27/25 21:22 Oxygen Delivery Room Air 02/27/25 11:40 MDM - Abdominal Pain MDM Narrative Medical decision making narrative: pt presents with bloody stools and lower abd pain. stools definitely bloody on pic he took. will get ct and labs. could be colitis but no hx of bowel disease. could also be perforated diverticlula or diverticlulitis or maybe appendicitis. Pt has terminal ileitis on CT scan. talked with Dr Ya. said will consult. said start on levaquin, get crp, and stool studies if he has stool and add to his list. discussed with Celine Cordoba and agrees to admit. Lab Data 02/27/25 12:28 02/27/25 12:28 Labs: Lab Results 02/27/25 Range/Units 12:28 WBC 10.8 H (4.5-10.0) K/mm3 RBC 4.92 (4.6-6.20) M/mm3 Hgb 15.1 (14.0-18.0) g/dL Hct 48.0 (42.0-52.0) % MCV 97.6 (80-100) fl MCH 30.7 (26-34) pg MCHC 31.5 L (32-36) g/dl RDW 13.3 (11.5-14.5) % Plt Count 198 (150-375) k/mm3 MPV 11.2 H (7.4-10.4) fl Immature Gran % (Auto) 0.5 (0-0.5) % Neut % (Auto) 52.8 (45.5-73.1) % Lymph % (Auto) 35.2 (18.3-44.2) % [place] % (Auto) 7.9 (2.6-8.5) % Eos % (Auto) 3.0 (0-4.4) % Baso % (Auto) 0.6 (0.2-1.2) % Lymph # (Auto) 3.80 H (0.9-3.2) K/mm3 [place] # (Auto) 0.9 H (0.1-0.6) K/mm3 Eos # (Auto) 0.3 (0-0.3) K/mm3 Baso # (Auto) 0.1 (0.0-0.1) K/mm3 Abs Immat Gran (auto) 0.05 H (0.00-0.031) K/mm3 Absolute Neuts (auto) 5.7 (1.3-6.7) K/mm3 Absolute Nucleated RBC 0.000 (0.0-0.012) K/mm3 Nucleated RBC % 0.0 (0.0-0.2) % PT 14.2 (11.1-14.7) Seconds INR 1.1 APTT 25.8 (22.3-36.8) Seconds Sodium 142 (137-145) mmol/L Potassium 3.3 L (3.4-5.0) mmol/L Chloride 105 (98-107) mmol/L Carbon Dioxide 26 (22-30) mmol/L Anion Gap 11 (4-12) mmol/L BUN 4 L (9-20) mg/dL Creatinine 0.63 L (0.7-1.3) mg/dL Estim Creat Clear Calc 152 ml/min Estimated GFR > 60 (59 - ) Glucose 66 (65-110) mg/dL Lactic Acid 1.8 (0.7-2.0) mmol/L Calcium 9.7 (8.4-10.2) mg/dL Total Bilirubin 0.3 (0.2-1.3) mg/dL AST 32 (17-59) U/L ALT 29 (6-50) U/L Alkaline Phosphatase 72 (38-126) U/L C-Reactive Protein < 0.5 (<1.0) mg/dL Total Protein 7.8 (6.3-8.2) g/dL Albumin 4.6 (3.5-5.1) g/dL Imaging Data Radiologist's impression: ITS Impressions Abdomen/Pelvis CT 02/27/25 13:39 IMPRESSION: Findings concerning for terminal ileitis and mesenteric adenitis, as detailed above. Discharge Plan Discharge Clinical Impression: Terminal ileitis Patient Disposition: Still a Patient Condition: Stable
[2025-02-27] MEDS: levoFLOXacin 750 MG/D5W 150 ML 750 MG/150 ML BAG 100 MG IVPB (15:47)
--- NOTE | 2025-02-27 16:14 | P.HP_ITS ---
H&P: HPI History of Present Illness Date/Time: 02/27/25 16:14 Chief Complaint: Bloody stool, abdominal pain Narrative: Barry Schofield is a 24-year-old male with a past medical history of anxiety, bipolar 1 disorder, who presents to the hospital with a 1 day history of bloody stools and abdominal pain. He is accompanied by his mother. Patient states that he has been experiencing generalized abdominal discomfort for the past year, but has not been seen by GI specialist. He has mentioned this problem to his primary care physician but has not been worked up for this issue. The bloody stools is a new development and started 1 day ago. He describes it as loose, mucous-like stools. He states that his abdominal pain is relieved upon passage of the stool but comes back after few hours. States that it is a achy pain all throughout his abdomen, worse in the left lower quadrant. Denies any history of GI issues. Denies any chest pain, shortness of breath, nausea/vomiting, testicular pain or urinary changes. Denies any recent travel, known sick contacts, or fevers. Patient is adopted, family history is unknown. In ED: 126/69, 69 HR, 18 RR, 100% room air WBC 10.8, H&H 15.1/48.0, Lymph # 3.8, otherwise unremarkable CBC. Potassium 3.3, creatinine 0.63, otherwise unremarkable CMP CRP pending CT abdomen/pelvis: Findings concerning for terminal ileitis and mesenteric adenitis, as detailed above. Consult GI Review of Systems Review of Systems: All systems reviewed & are unremarkable except as noted in HPI and below PMFSH Past Medical History Medical History Insomnia Bipolar 1 disorder Surgical History Surgical History H/O removal of cyst earlobe removal H/O adenoidectomy 06/2006 Hx of tonsillectomy 06/2006 Family History Family History Grandparent Acute myocardial infarction Diabetes mellitus Mother Cerebrovascular accident Depression Diabetes mellitus Hypertension Father Depression Social History Social History Smoking status: Current every day smoker Tobacco type: e-cigarettes/vaping Second hand tobacco smoke exposure: Yes Alcohol intake: never Substance use: never Lack of Transportation: No Lack of Food: Never True Current Housing: I Have Housing Concerned About Future Housing: No Difficulty Paying Gas/Electric Bills: No Difficulty Paying for Meds: No Currently Unemployed: No Education: High School Diploma/GED Difficulty w/ Childcare or Family Care: No Living arrangements: with family Occupation/Education: occupation Gender identity (if verbalized by the patient): Male Sexual Orientation (if Verbalized by the Patient): Straight or Heterosexual Spiritual care concerns: No Agree to blood products: Yes Meds Home Medications and Allergies Home Medications ?Medication ?Instructions ?Recorded ?Confirmed ?Type cetirizine 10 mg capsule (Zyrtec) 10 mg PO DAILY PRN 09/09/21 02/27/25 History multivitamin 1 tablet PO DAILY 09/09/21 02/27/25 History albuterol sulfate 90 mcg/actuation 2 inh inhalation Q4H PRN shortness 07/24/23 02/27/25 Rx aerosol inhaler of breath or wheezing #6.7 grams ondansetron 4 mg disintegrating 4 mg PO QID PRN nausea and 04/08/24 02/27/25 Rx tablet vomiting #15 tabs duloxetine 30 mg capsule,delayed See Rx Instructions .Route 09/22/24 02/27/25 Rx release .COMPLEX #270 ea lithium carbonate 300 mg See Rx Instructions PO .COMPLEX 11/16/24 02/27/25 Rx tablet,extended release #270 tabs lisdexamfetamine 60 mg capsule 60 mg PO QAM #30 caps 02/07/25 02/27/25 Rx (Vyvanse) Allergies Allergy/AdvReac Type Severity Reaction Status Date / Time methylphenidate (From AdvReac Severe night Verified 02/27/25 12:41 Concerta) terrors Vital Signs Vital Signs - 24 hr 02/27/25 11:40 02/27/25 12:33 02/27/25 13:28 Temperature 98.0 F 98.8 F 98.4 F Pulse Rate 110 H 103 H 80 Respiratory Rate 19 18 18 Blood Pressure 136/74 127/78 116/100 H Pulse Oximetry 100 100 100 Oxygen Delivery Room Air 02/27/25 14:23 02/27/25 15:49 Temperature 98.7 F Pulse Rate 65 69 Respiratory Rate 18 18 Blood Pressure 118/68 126/69 Pulse Oximetry 100 100 Oxygen Delivery Exam Narrative: Gen - well appearing male in no acute respiratory distress who is nontoxic- appearing lying semi recumbent in bed HEENT - normocephalic. Atraumatic. Pupils equal round and reactive. Extraocular motions intact. Sclera clear and anicteric. Nares patent. Oropharynx was clear. Moist mucous membranes. Neck - neck was supple. No dominant adenopathy, thyromegaly or masses. 2+ carotid upstrokes without bruits. Chest - lungs are clear to auscultation bilaterally. No wheezes or crackles. CV - heart was regular rate and rhythm. S1-S2. No murmurs gallops or rubs. Abd -tenderness to palpation to entire abdominal wall, worse in left lower quadrant. abdomen was soft. Nondistended. Positive bowel sounds. No organomegaly or masses. Ext - no clubbing, cyanosis or edema. 2+ DP pulses bilaterally. Neuro - patient is alert and oriented x4. Strength is 5/5 in both upper and lower extremities. Cranial nerves 2-12 are intact. Speech is clear. Psych - normal mood and affect. Patient is pleasant and cooperative. Skin - warm and dry. No rashes noted. H&P: Results Labs Labs: Short CBC 02/27/25 Range/Units 12:28 WBC 10.8 H (4.5-10.0) K/mm3 Hgb 15.1 (14.0-18.0) g/dL Hct 48.0 (42.0-52.0) % Plt Count 198 (150-375) k/mm3 BMP 02/27/25 12:28 Sodium 142 Potassium 3.3 L Chloride 105 Carbon Dioxide 26 BUN 4 L Creatinine 0.63 L Glucose 66 Calcium 9.7 Liver Function 02/27/25 Range/Units 12:28 Total Bilirubin 0.3 (0.2-1.3) mg/dL AST 32 (17-59) U/L ALT 29 (6-50) U/L Alkaline Phosphatase 72 (38-126) U/L Albumin 4.6 (3.5-5.1) g/dL Assessment and Plan Assessment and plan (1) Abdominal pain: Code(s): R10.9 - Unspecified abdominal pain Status: Acute Assessment and Plan: * CT abdomen/pelvis: Findings concerning for terminal ileitis and mesenteric ad enitis * Monitor serum electrolytes, CBC, hemoglobin/hematocrit q.8 hours. If hemoglobin drops below 7 transfuse packed red blood cells * Monitor for bloody bowel movements,chest pain,SOB or dizziness/lightheadedness * Pain under control at this time, no episodes of bloody stools since this morning * Discussed with GI - initiate patient on bowel prep for colonoscopy tomorrow, full liquids today but NPO at midnight * Will add CRP, stool culture, C diff (2) Bipolar 1 disorder: Code(s): F31.9 - Bipolar disorder, unspecified Status: Acute Assessment and Plan: * Continue at-home medications (3) Attention-deficit hyperactivity disorder, combined type: Code(s): F90.2 - Attention-deficit hyperactivity disorder, combined type Status: Acute Assessment and Plan: * Continue at-home medications Plan * Diet: Full liquids, NPO at midnight * DVT Px: SCDs * Avoid anti-coagulations Quality VTE Prophylaxis VTE prophylaxis: mechanical ordered
[2025-02-27 16:28] LABS: CRP < 0.5 mg/dL (<1.0)
--- NOTE | 2025-02-27 18:30 | ADMGEN ---
This patient, Barry Schofield, was admitted to [facility] Surg Room 329-01. Patient/family oriented to hospital policies and general routines including ID bracelet, bed and alarms, visiting hours, pain management, procedures, bathroom and other care routines, personal items, smoking policy, room service/diet, and visiting hours. Information on how to activate the Rapid Response Team has been discussed. Patient/Family are encouraged to report perceived risks to care and to ask questions if they do not understand what they are told or what they should do.
--- OUTSIDE RECORDS SUMMARY | 2025-02-27 18:53 | XMS_ITS | Encounter Summary ---
Author Organization [facility] Address [address] [place] [address] Care Team Providers Care Paper Supervisor Name Role Phone Felisa Cooper MD Primary Care Provider Nickie gamble Reason for Visit * Reason Onset Date Comments Question 04/26/2013 Encounter Details Date Type Department Care Team (Late st Contact Info) Description 04/26/2013 Telephone [facility] - 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
--- OUTSIDE RECORDS SUMMARY | 2025-02-27 18:53 | XMS_ITS | Encounter Summary ---
Author Organization [facility] Address [address] [place] [address] Care Team Providers Care Optical Scientist Name Role Phone Felisa Cooper MD Primary Care Provider Nickie gamble Reason for Visit * Reason Onset Date Comments MEDICATION REFILL 07/27/2012 Encounter Details Date Type Department Care Team (Late st Contact Info) Description 07/27/2012 Telephone [facility] - [facility] [place] [address] Felisa Cooper MD Need new address MEDICATION REFILL Social History Tobacco Use Types Packs/Day Years Used Date Smoking Tobacco: Never Assessed Sex and Gender Information Value Date Recorded Sex Assigned at Not on file 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 I called mother and left message for her to make appt a few weeks before last dose in order to get refills. GER LEGAL * Telephone Encounter - Pappademos, Dolley - 07/27/2012 9:23 AM CST Needs refill on vyvanase Please mail : [address] [phone] for 3mos. GER LEGAL documented in this encounter Plan of Treatment Not on file documented as of this encounter Visit Diagnoses Diagnosis ADHD (attention deficit hyperactivity disorder)- Primary Attention deficit disorder with hyperactivity documented in this encounter Additional Health Concerns Infection Onset Date Last Indicated Resolved Time COVID-19 Under Investigation 01/03/2020 01/03/2020 01/04/2020 12:34 AM CDT documented as of this encounter Care Teams Optical Scientist Relationship Specialty Start Date End Date Felisa Cooper MD Need new address PCP - General 11/28/10 documented as of this encounter
--- OUTSIDE RECORDS SUMMARY | 2025-02-27 18:53 | XMS_ITS | Clinical Summary ---
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
--- OUTSIDE RECORDS SUMMARY | 2025-02-27 18:53 | XMS_ITS | Encounter Summary ---
Author Organization [facility] Address [address] [place] [address] Care Team Providers Care Hvac Sales Representative Name Role Phone Felisa Cooper MD Primary Care Provider Nickie gamble Reason for Visit * Reason Onset Date Comments Medication Problem 01/11/2018 Encounter Details Date Type Department Care Team (Late st Contact Info) Description 01/11/2018 Telephone [facility] - [facility] [place] [address] Michelle Richmond Medication Problem Social History Tobacco Use Types Packs/Day Years Used Date Smoking Tobacco: Never Assessed Sex and Gender Information Value Date Recorded Sex Assigned at Not on file 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 Preferred alternatives include: LEVA ALBUTEROL AER ACT, PROAIR HFA AER, PROAIR REPSI AER. Last [facility] 03-18-2017 documented in this encounter Plan of Treatment Not on file documented as of this encounter Visit Diagnoses Not on filedocumented in this encounter Additional Health Concerns Infection Onset Date Last Indicated Resolved Time COVID-19 Under Investigation 01/03/2020 01/03/2020 01/04/2020 12:34 AM CDT documented as of this encounter Care Teams Hvac Sales Representative Relationship Specialty Start Date End Date Felisa Cooper MD Need new address PCP - General 11/28/10 documented as of this encounter
--- OUTSIDE RECORDS SUMMARY | 2025-02-27 18:53 | XMS_ITS | Encounter Summary ---
Author Organization [facility] Address [address] [place] [address] Care Team Providers Care Floor Hand Name Role Phone Felisa Cooper MD Primary Care Provider Nickie gamble Reason for Visit * Reason Onset Date Comments Medication Request 02/09/2018 Encounter Details Date Type Department Care Team (Late st Contact Info) Description 02/09/2018 Telephone [facility] - [facility] [place] [address] Michelle Richmond Medication Request Social History Tobacco Use Types Packs/Day Years Used Date Smoking Tobacco: Never Assessed Sex and Gender Information Value Date Recorded Sex Assigned at Not on file 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 FU at [facility]. * Telephone Encounter - Michelle Richmond - 02/09/2018 12:48 PM CDT Mom is calling requesting a refill for Rx lisdexamfetamine (VYVANSE) 60 MG capsule to be mailed to her home at the address of: [address] [place] [id number] Next appt on 03/18/[address] Cooper documented in this encounter Plan of Treatment Not on file documented as of this encounter Visit Diagnoses Not on filedocumented in this encounter Additional Health Concerns Infection Onset Date Last Indicated Resolved Time COVID-19 Under Investigation 01/03/2020 01/03/2020 01/04/2020 12:34 AM CDT documented as of this encounter Care Teams Floor Hand Relationship Specialty Start Date End Date Felisa Cooper MD Need new address PCP - General 11/28/10 documented as of this encounter
--- OUTSIDE RECORDS SUMMARY | 2025-02-27 18:53 | XMS_ITS | Clinical Summary ---
Author Organization [facility] Address [address] [place] [address] Care Team Providers Care Welder Plastic Name Role Phone Felisa Cooper MD Primary Care Provider Nickie gamble Source Comments [facility],non-owned Affiliates and Associated Physician Practices is amultiple site organization consisting of ambulatory clinics and hospital sitesin [place], [place], [place] and [place]. This disclosure is being madepursuant to the Care Everywhere program and may not contain all information available regarding this patient. Last updated 18.[facility] Allergies Active Allergy Reactions Criticality [...] 10/12/2019 Assessment & Plan (10/12/2019 2:45 PM VESSEL SCRAPPER): Assessment: Patient c/o vomiting daily one to [...] was increased 3-4 weeks ago). Plan: - [place] diet, hold dairy foods, monitor sx's and [...] 06/01/2019 Assessment & Plan (07/06/2019 2:10 PM VESSEL SCRAPPER): Pt with recent [place] inpatient Tx for SI, anxiety, anger management, now doing well with outpatient Tx. He is followed by psychiatry (in [place]), private counselor (in [place]), and school psychologist. He was dx'd with [...] became more emotional. He was taken to [facility] for inpatient treatment and was there for [...] 04/03/2016 Assessment & Plan (10/09/2016 12:15 PM VESSEL SCRAPPER): Pt saw CT surgery 03/2016, CXR wnl, [...] albuterol. Assessment & Plan (10/09/2016 12:17 PM VESSEL SCRAPPER): Cont prn use for sx's, also rec [...] 12/03/2010 Assessment & Plan (07/06/2019 2:13 PM VESSEL SCRAPPER): Pt was recently dx'd with bipolar d/o [...] months. Family lives 45 [place] away in [place], May call for RF in 3 months [...] is failing most of his classes currently ([place], math, science). He denies medication SE's. He [...] months. Assessment & Plan (09/07/2018 12:58 PM VESSEL SCRAPPER): Pt was off vyvanse last summer, restarted [...] lives about 45 min away), also recommend middle school tutor at school to receive more 1 on 1 instruction to catch up with material that pt struggled with the last few weeks. FU for [facility] and ADHD FU in 3 months. Assessment & Plan (10/09/2016 12:27 PM VESSEL SCRAPPER): Doing very well in school and home [...] months. Assessment & Plan (10/03/2015 9:36 AM VESSEL SCRAPPER): Behavior and school are doing well. Decreased concentration while doing homework in the afternoon. No current side effects. - Continue 60 mg vyvanse daily - Add 5 mg ritalin in the afternoon to help with homework time - Mom will call if any problems. 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 Rx for bactroban ordered for tid use X1 week. FU if pers sx's. URI (upper respiratory infection) 10/09/2016 10/23/2016 Assessment & Plan (10/09/2016 12:26 PM VESSEL SCRAPPER): Pt has had nasal congestion and some thick d/c for last 2 weeks but improving now. No hx of fever, had mild ST last week but resolved now, pt with normal activity/sleep/PO. If increased/pers sx's may consider Abx Tx for sinusitis but cont supportive care for now. Costochondral chest pain 10/03/2015 Assessment & Plan (10/03/2015 9:37 AM VESSEL SCRAPPER): Lower rib pain that increases with deep breaths and palpation. - Ibuprofen PRN for pain Periumbilical abdominal pain 05/23/2015 10/09/2016 Overview (05/24/2015): Assessment & Plan (10/03/2015 9:38 AM VESSEL SCRAPPER): Mild abdominal pain and frequent soft stools. [...] meds. Assessment & Plan (2014 12:44 PM VESSEL SCRAPPER): No known trauma and pt has not [...] Pt was almost 11 years at last [facility] 03/2013 so immunizations not given. Will give Tdap, menactra, HPV today. 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 Discussed with patient and his mother that [...] on file Legal Sex Male 6:59 AM VESSEL SCRAPPER Gender Identity Not on file Sexual Orientation [...] 07/06/2019, 04/06/2019 Insurance HE[employer] HE[employer] Care Teams Welder Plastic Relationship Specialty Start Date End Date Felisa Cooper MD Need new address PCP - General 11/28/10
--- OUTSIDE RECORDS SUMMARY | 2025-02-27 18:53 | XMS_ITS | Clinical Summary ---
Author Organization [facility] Address [address] [place] [id number] Care Team Providers Care Director Veterinary Name Role Phone Unavailable Primary Care Provider [...]
--- OUTSIDE RECORDS SUMMARY | 2025-02-27 18:53 | XMS_ITS | Encounter Summary ---
Author Organization [facility] Address [address] [place] [address] Care Team Providers Care Software Engineer Kernel Name Role Phone Felisa Cooper MD Primary Care Provider Nickie gamble Encounter Details Date Type Department Care Team (Late st Contact Info) Description 07/14/2018 Telephone [facility] - [facility] [address] [place] [id number] Ann Agee Social History Tobacco Use Types Packs/Day Years Used Date Smoking Tobacco: Never Assessed Sex and Gender Information Value Date Recorded Sex Assigned at Not on file 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
--- OUTSIDE RECORDS SUMMARY | 2025-02-27 18:53 | XMS_ITS | Encounter Summary ---
Author Organization [facility] Address [address] [facility] [place] [address] Care Team Providers Care Personal Care Aid Name Role Phone Felisa Cooper MD Primary Care Provider Nickie gamble Encounter Details Date Type Department Care Team (Late st Contact Info) Description 07/14/2018 Telephone [facility] - [facility] [place] [address] Ann Agee Social History Tobacco Use Types Packs/Day Years Used Date Smoking Tobacco: Never Assessed Sex and Gender Information Value Date Recorded Sex Assigned at Not on file 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 BRATION TESTER * Telephone Encounter - Ann Agee - 07/14/2018 12:01 PM CST Barry Schofield's, 18 y.o. male, mother is calling with concerns but would not any details just wanted to talk to Dr. Cooper about [place] Instructed that provider will call back at their earliest convenience. BRATION TESTER documented in this encounter Plan of Treatment Not on file documented as of this encounter Visit Diagnoses Not on filedocumented in this encounter Additional Health Concerns Infection Onset Date Last Indicated Resolved Time COVID-19 Under Investigation 01/03/2020 01/03/2020 01/04/2020 12:34 AM CDT documented as of this encounter Care Teams Personal Care Aid Relationship Specialty Start Date End Date Felisa Cooper MD Need new address PCP - General 11/28/10 documented as of this encounter
--- NOTE | 2025-02-27 23:48 | PHAR ---
HOME MEDS- Lisdexamfetamine [Vyvanse] 60 mg capsule (#2) TAKE ONE CAPSULE BY MOUTH IN THE MORNING & HOME MED- [place] Carbonate 300 mg tablet extended release (#6) TAKE 1 TABLET BY MOUTH IN THE MORNING AND 2 IN THE EVENING. Verified in Pharmacy and sent back to the [address] [place] [address] for inpatient use.
[2025-02-28] MEDS: LITHIUM CARBONATE 300 MG 2 EACH PO (00:08)
[2025-02-28 06:00] VITALS: BP 121/77; PULSE 80; RESP 16; TEMP 36.1; O2SAT 100
[2025-02-28 06:02] LABS: Hematocrit 47.3 % (42.0-52.0); Hemoglobin 15.1 g/dL (14.0-18.0); Immature Granulocyte Percent A 0.5 % (0-0.5); Immature Platelet Fraction Pct 5.9 % (0.9-11.2); Lymphocytes Absolute Auto 4.34 K/mm3 (0.9-3.2); Mean Corpuscular HGB Conc 31.9 g/dl (32-36); Mean Corpuscular Hemoglobin 31.4 pg (26-34); Mean Corpuscular Volume 98.3 fl (80-100); Nucleated Red Blood Cells Absolute Auto 0.000 K/mm3 (0.0-0.012); Nucleated Red Blood Cells Perc 0.0 % (0.0-0.2); Platelet Count Result 211 k/mm3 (150-375); Red Blood Count 4.81 M/mm3 (4.6-6.20); White Blood Count 10.8 K/mm3 (4.5-10.0)
[2025-02-28 06:16] LABS: Alanine Aminotransferase 27 U/L (6-50); Albumin Level 4.6 g/dL (3.5-5.1); Alkaline Phosphatase 73 U/L (38-126); Anion Gap 9 mmol/L (4-12); Aspartate Amino Transferase 31 U/L (17-59); Bilirubin,Total 0.6 mg/dL (0.2-1.3); Blood Urea Nitrogen 6 mg/dL (9-20); Calcium 9.6 mg/dL (8.4-10.2); Carbon Dioxide 27 mmol/L (22-30); Chloride 105 mmol/L (98-107); Estimated CRCL calculation 136 ml/min; Estimated Glomerular Filt Rate > 60; Glucose 90 mg/dL (65-110); Potassium 3.9 mmol/L (3.4-5.0); Sodium 141 mmol/L (137-145); Total Protein 7.5 g/dL (6.3-8.2)
--- NOTE | 2025-02-28 06:57 | P.CONGI_ITS ---
Assessment and Plan Assessment and plan (1) Terminal ileitis: Code(s): K50.00 - Crohn's disease of small intestine without complications Status: Acute (2) Bloody diarrhea: Code(s): R19.7 - Diarrhea, unspecified Status: Acute Assessment and Plan: The patient's bloody diarrhea differential diagnosis includes infectious pathogens like Shigella, Salmonella, or invasive E. coli, as well as inflammatory bowel disease . Although the CT scan findings suggest Crohn's disease as a strong possibility, the acute presentation, notably without accompanying systemic symptoms, anemia, hypoalbuminemia, or an elevated CRP, makes an acute infectious etiology more probable. Therefore, we're proceeding with a colonoscopy today for direct visualization and biopsy of the ileocolonic mucosa to confirm the diagnosis. He already received a dose of levofloxacin yesterday. Plan - colonoscopy today GI Consult Note Consult date/time: 02/28/25 06:57 Reason for consult: Bloody stool HPI: Mr. Barry Schofield, a 24-year-old male with a medical history significant for bipolar disorder, presented to the hospital with a one-day history of bloody diarrheal movements. This was accompanied by severe, cramping lower abdominal pain that radiated to his testicles and was partially relieved by defecation. He denies any associated fever, nausea, vomiting, or other systemic symptoms. Of note, he reports experiencing intermittent abdominal pain and discomfort, predominantly in the left lower quadrant, for over a year. Initial laboratory data upon admission showed a WBC of 10.8, hemoglobin 15.1, hematocrit 47.3, and platelets 211. Electrolytes (sodium 141, potassium 3.9), renal function (BUN 6, creatinine 0.71), albumin (4.6), CRP (<0.5), AST (31), and ALT (27) were all within normal limits. a CT scan of the abdomen and pelvis showed inflammation in the terminal ileum, compatible with ileitis. Review of Systems 2 Review of Systems: All systems reviewed & are unremarkable except as noted in HPI and below PMFSH Past Medical History Medical History Insomnia Bipolar 1 disorder Surgical History Surgical History H/O removal of cyst earlobe removal H/O adenoidectomy 06/2006 Hx of tonsillectomy 06/2006 Family History Family History Grandparent Acute myocardial infarction Diabetes mellitus Mother Cerebrovascular accident Depression Diabetes mellitus Hypertension Father Depression Social History Social History Smoking status: Current every day smoker Tobacco type: e-cigarettes/vaping Second hand tobacco smoke exposure: Yes Alcohol intake: never Substance use: current Substance use type: marijuana Do You Feel Safe in your Home?: Yes Lack of Transportation: No Lack of Food: Never True Current Housing: I Have Housing Concerned About Future Housing: No Difficulty Paying Gas/Electric Bills: No Difficulty Paying for Meds: No Currently Unemployed: No Education: High School Diploma/GED Difficulty w/ Childcare or Family Care: No Living arrangements: with family Occupation/Education: occupation Gender identity (if verbalized by the patient): Male Sexual Orientation (if Verbalized by the Patient): Straight or Heterosexual Spiritual care concerns: No Agree to blood products: Yes Meds Home Medications and Allergies Home Medications ?Medication ?Instructions ?Recorded ?Confirmed ?Type cetirizine 10 mg capsule (Zyrtec) 10 mg PO HS 09/09/21 02/27/25 History multivitamin 1 tablet PO DAILY 09/09/21 02/27/25 History duloxetine 30 mg capsule,delayed See Rx Instructions .Route 09/22/24 02/27/25 Rx release .COMPLEX #270 ea lithium carbonate 300 mg See Rx Instructions PO .COMPLEX 11/16/24 02/27/25 Rx tablet,extended release #270 tabs lisdexamfetamine 60 mg capsule 60 mg PO QAM #30 caps 02/07/25 02/27/25 Rx (Vyvanse) Allergies Allergy/AdvReac Type Severity Reaction Status Date / Time methylphenidate (From AdvReac Severe night Verified 02/27/25 12:41 Concerta) terrors Vital Signs Vital Signs - 24 hr 02/27/25 11:40 02/27/25 12:23 02/27/25 12:33 Temperature 98.0 F 98.8 F Pulse Rate 110 H 103 H Respiratory Rate 19 18 Blood Pressure 136/74 152/81 H 127/78 Pulse Oximetry 100 100 100 Oxygen Delivery Room Air 02/27/25 12:47 02/27/25 13:02 02/27/25 13:28 Temperature 98.4 F Pulse Rate 66 79 80 Respiratory Rate 15 21 H 18 Blood Pressure 106/61 111/68 116/100 H Pulse Oximetry 100 100 Oxygen Delivery 02/27/25 13:31 02/27/25 14:01 02/27/25 14:16 Temperature Pulse Rate 79 66 72 Respiratory Rate 12 21 H 16 Blood Pressure 112/67 129/71 118/68 Pulse Oximetry 100 100 Oxygen Delivery 02/27/25 14:23 02/27/25 14:46 02/27/25 15:48 Temperature 98.7 F Pulse Rate 65 66 69 Respiratory Rate 18 24 H 17 Blood Pressure 118/68 118/66 126/69 Pulse Oximetry 100 100 100 Oxygen Delivery 02/27/25 15:49 02/27/25 16:16 02/27/25 16:31 Temperature Pulse Rate 69 72 72 Respiratory Rate 18 16 19 Blood Pressure 126/69 118/70 118/73 Pulse Oximetry 100 100 100 Oxygen Delivery 02/27/25 21:22 02/27/25 22:16 Temperature 97.9 F Pulse Rate 95 Respiratory Rate 20 Blood Pressure 127/65 Pulse Oximetry 99 Oxygen Delivery Room Air Exam 2 Narrative: Gen - well appearing male in no acute respiratory distress who is nontoxic- appearing lying semi recumbent in bed HEENT - normocephalic. Atraumatic. Pupils equal round and reactive. Extraocular motions intact. Sclera clear and anicteric. Nares patent. Oropharynx was clear. Moist mucous membranes. Neck - neck was supple. No dominant adenopathy, thyromegaly or masses. 2+ carotid upstrokes without bruits. Chest - lungs are clear to auscultation bilaterally. No wheezes or crackles. CV - heart was regular rate and rhythm. S1-S2. No murmurs gallops or rubs. Abd -tenderness to palpation to entire abdominal wall, worse in left lower quadrant. abdomen was soft. Nondistended. Positive bowel sounds. No organomegaly or masses. Ext - no clubbing, cyanosis or edema. 2+ DP pulses bilaterally. Neuro - patient is alert and oriented x4. Strength is 5/5 in both upper and lower extremities. Cranial nerves 2-12 are intact. Speech is clear. Psych - normal mood and affect. Patient is pleasant and cooperative. Skin - warm and dry. No rashes noted. Results Labs 02/28/25 05:41 02/28/25 05:41 Labs: Short CBC 02/27/25 02/28/25 Range/Units 12:28 05:41 WBC 10.8 H 10.8 H (4.5-10.0) K/mm3 Hgb 15.1 15.1 (14.0-18.0) g/dL Hct 48.0 47.3 (42.0-52.0) % Plt Count 198 211 (150-375) k/mm3 BMP 02/27/25 02/28/25 12:28 05:41 Sodium 142 141 Potassium 3.3 L 3.9 Chloride 105 105 Carbon Dioxide 26 27 BUN 4 L 6 L Creatinine 0.63 L 0.71 Glucose 66 90 Calcium 9.7 9.6 Liver Function 02/27/25 02/28/25 Range/Units 12:28 05:41 Total Bilirubin 0.3 0.6 (0.2-1.3) mg/dL AST 32 31 (17-59) U/L ALT 29 27 (6-50) U/L Alkaline Phosphatase 72 73 (38-126) U/L Albumin 4.6 4.6 (3.5-5.1) g/dL
[2025-02-28 07:31] VITALS: BP 127/81; PULSE 87; RESP 16; TEMP 36.6; O2SAT 100
[2025-02-28] MEDS: LACTATED RINGERS 1,000 ML 150 ML IV CONT (07:34)
--- NOTE | 2025-02-28 07:34 | WPDANESEPPF ---
Anes - Initial Pre Proc Eval Procedure: Operation Date: 02/28/25 14:00 Proposed Procedures p Diagnostic Colonoscopy - Leodan Ya MD Date/Time: 02/28/25 07:34 Surgeon: Ashu Lin MD Pre Op Diagnosis: TERMINAL ILEITIS Patient Data Age: 24 Gender: M Height: 1.73 m Weight: 75.3 kg Last Vital Signs Temp 98 F 02/28/25 07:31 Pulse 87 02/28/25 07:31 Resp 16 02/28/25 07:31 BP 127/81 02/28/25 07:31 Pulse Ox 100 02/28/25 07:31 O2 Del Method Room Air 02/28/25 07:31 Allergies Allergy/AdvReac Type Severity Reaction Status Date / Time methylphenidate (From AdvReac Severe night Verified 02/28/25 07:27 Concerta) terrors Home Medications ?Medication ?Instructions ?Recorded ?Confirmed ?Type cetirizine 10 mg capsule (Zyrtec) 10 mg PO HS 09/09/21 02/27/25 History multivitamin 1 tablet PO DAILY 09/09/21 02/27/25 History duloxetine 30 mg capsule,delayed See Rx Instructions .Route 09/22/24 02/27/25 Rx release .COMPLEX #270 ea lithium carbonate 300 mg See Rx Instructions PO .COMPLEX 11/16/24 02/27/25 Rx tablet,extended release #270 tabs lisdexamfetamine 60 mg capsule 60 mg PO QAM #30 caps 02/07/25 02/27/25 Rx (Vyvanse) Laboratory Tests 02/27/25 02/28/25 12:28 05:41 WBC 10.8 H K/mm3 10.8 H K/mm3 (4.5-10.0) (4.5-10.0) RBC 4.92 M/mm3 4.81 M/mm3 (4.6-6.20) (4.6-6.20) Hgb 15.1 g/dL 15.1 g/dL (14.0-18.0) (14.0-18.0) Hct 48.0 % 47.3 % (42.0-52.0) (42.0-52.0) MCV 97.6 fl 98.3 fl (80-100) (80-100) MCH 30.7 pg 31.4 pg (26-34) (26-34) MCHC 31.5 L g/dl 31.9 L g/dl (32-36) (32-36) RDW 13.3 % 13.2 % (11.5-14.5) (11.5-14.5) Plt Count 198 k/mm3 211 k/mm3 (150-375) (150-375) MPV 11.2 H fl 11.5 H fl (7.4-10.4) (7.4-10.4) Immature Gran % (Auto) 0.5 % 0.5 % (0-0.5) (0-0.5) Neut % (Auto) 52.8 % 49.9 % (45.5-73.1) (45.5-73.1) Lymph % (Auto) 35.2 % 40.1 % (18.3-44.2) (18.3-44.2) Nye % (Auto) 7.9 % 6.4 % (2.6-8.5) (2.6-8.5) Eos % (Auto) 3.0 % 2.5 % (0-4.4) (0-4.4) Baso % (Auto) 0.6 % 0.6 % (0.2-1.2) (0.2-1.2) Lymph # (Auto) 3.80 H K/mm3 4.34 H K/mm3 (0.9-3.2) (0.9-3.2) Nye # (Auto) 0.9 H K/mm3 0.7 H K/mm3 (0.1-0.6) (0.1-0.6) Eos # (Auto) 0.3 K/mm3 0.3 K/mm3 (0-0.3) (0-0.3) Baso # (Auto) 0.1 K/mm3 0.1 K/mm3 (0.0-0.1) (0.0-0.1) Abs Immat Gran (auto) 0.05 H K/mm3 0.05 H K/mm3 (0.00-0.031) (0.00-0.031) Absolute Neuts (auto) 5.7 K/mm3 5.4 K/mm3 (1.3-6.7) (1.3-6.7) Absolute Nucleated RBC 0.000 K/mm3 0.000 K/mm3 (0.0-0.012) (0.0-0.012) Nucleated RBC % 0.0 % 0.0 % (0.0-0.2) (0.0-0.2) % Immature Plt Fraction 5.9 % (0.9-11.2) PT 14.2 Seconds (11.1-14.7) INR 1.1 APTT 25.8 Seconds (22.3-36.8) Sodium 142 mmol/L 141 mmol/L (137-145) (137-145) Potassium 3.3 L mmol/L 3.9 mmol/L (3.4-5.0) (3.4-5.0) Chloride 105 mmol/L 105 mmol/L (98-107) (98-107) Carbon Dioxide 26 mmol/L 27 mmol/L (22-30) (22-30) Anion Gap 11 mmol/L 9 mmol/L (4-12) (4-12) BUN 4 L mg/dL 6 L mg/dL (9-20) (9-20) Creatinine 0.63 L mg/dL 0.71 mg/dL (0.7-1.3) (0.7-1.3) Estim Creat Clear Calc 152 ml/min 136 ml/min Estimated GFR > 60 > 60 (59 - ) (59 - ) Glucose 66 mg/dL 90 mg/dL (65-110) (65-110) Lactic Acid 1.8 mmol/L (0.7-2.0) Calcium 9.7 mg/dL 9.6 mg/dL (8.4-10.2) (8.4-10.2) Total Bilirubin 0.3 mg/dL 0.6 mg/dL (0.2-1.3) (0.2-1.3) AST 32 U/L 31 U/L (17-59) (17-59) ALT 29 U/L 27 U/L (6-50) (6-50) Alkaline Phosphatase 72 U/L 73 U/L (38-126) (38-126) C-Reactive Protein < 0.5 mg/dL (<1.0) Total Protein 7.8 g/dL 7.5 g/dL (6.3-8.2) (6.3-8.2) Albumin 4.6 g/dL 4.6 g/dL (3.5-5.1) (3.5-5.1) Patient hx anesthesia problems: none Family hx anesthesia problems: none Results Review: All pre-operative results and documents have been reviewed as part of the pre-operative evaluation. [facility] Past Medical History Medical History Insomnia Bipolar 1 disorder Surgical History Surgical History H/O removal of cyst earlobe removal H/O adenoidectomy 06/2006 Hx of tonsillectomy 06/2006 Family History Family History Grandparent Acute myocardial infarction Diabetes mellitus Mother Cerebrovascular accident Depression Diabetes mellitus Hypertension Father Depression Social History Social History Smoking status: Current every day smoker Tobacco type: e-cigarettes/vaping Second hand tobacco smoke exposure: Yes Alcohol intake: never Substance use: current Substance use type: marijuana Do You Feel Safe in your Home?: Yes Lack of Transportation: No Lack of Food: Never True Current Housing: I Have Housing Concerned About Future Housing: No Difficulty Paying Gas/Electric Bills: No Difficulty Paying for Meds: No Currently Unemployed: No Education: High School Diploma/GED Difficulty w/ Childcare or Family Care: No Living arrangements: with family Occupation/Education: occupation Gender identity (if verbalized by the patient): Male Sexual Orientation (if Verbalized by the Patient): Straight or Heterosexual Spiritual care concerns: No Agree to blood products: Yes Anes - Eval Final PreProcedure Day of Procedure 02/28/25 07:34 Patient weight: normal Lungs: normal air movement Airway: Mallampati scale class II Neurological: alert and oriented Last oral intake: >/= 8 hours ASA classification: II Emergent: no Anesthetic plan: proceed Anesthesia type and monitoring: general GIVS and standard monitoring Results Review: All pre-operative results and documents have been reviewed as part of the pre-operative evaluation. Bipolar, active w vaping daily, now w blood in stool/abd pain. Informed Consent: The patient's anesthetic plan and its attendant risks and benefits were discussed with the patient/family/POA. Questions were solicited and answers provided to the satisfaction of the patient/family/POA.
--- NOTE | 2025-02-28 08:02 | P.PNIM_ITS ---
Progress Note: A&P Assessment and Plan (1) Abdominal pain: Code(s): R10.9 - Unspecified abdominal pain Status: Acute Assessment and Plan: * CT abdomen/pelvis: Findings concerning for terminal ileitis and mesenteric adenitis * Monitor serum electrolytes, CBC, hemoglobin/hematocrit q.8 hours. If hemoglobin drops below 7 transfuse packed red blood cells * Monitor for bloody bowel movements,chest pain,SOB or dizziness/lightheadedness * Pain under control at this time, no episodes of bloody stools since this morning * Discussed with GI - initiate patient on bowel prep for colonoscopy tomorrow, full liquids today but NPO at midnight * Will add CRP, stool culture, C diff * Colonoscopy today (2) Bipolar 1 disorder: Code(s): F31.9 - Bipolar disorder, unspecified Status: Acute Assessment and Plan: * Continue at-home medications (3) Attention-deficit hyperactivity disorder, combined type: Code(s): F90.2 - Attention-deficit hyperactivity disorder, combined type Status: Acute Assessment and Plan: * Continue at-home medications Plan * Diet: Full liquids, NPO at midnight * DVT Px: SCDs * Avoid anti-coagulations Subjective Date/time seen: 02/28/25 08:02 Interval history: 24-year-old male with a past medical history of anxiety, bipolar 1 disorder, who presents to the hospital with a 1 day history of bloody stools and abdominal pain. 02/28/2025 Review of Systems Review of Systems: All systems reviewed & are unremarkable except as noted in HPI and below Exam Narrative: Gen - well appearing male in no acute respiratory distress who is nontoxic- appearing lying semi recumbent in bed HEENT - normocephalic. Atraumatic. Pupils equal round and reactive. Extraocular motions intact. Sclera clear and anicteric. Nares patent. Orop harynx was clear. Moist mucous membranes. Neck - neck was supple. No dominant adenopathy, thyromegaly or masses. 2+ carotid upstrokes without bruits. Chest - lungs are clear to auscultation bilaterally. No wheezes or crackles. CV - heart was regular rate and rhythm. S1-S2. No murmurs gallops or rubs. Abd -tenderness to palpation to entire abdominal wall, worse in left lower quadrant. abdomen was soft. Nondistended. Positive bowel sounds. No organomegaly or masses. Ext - no clubbing, cyanosis or edema. 2+ DP pulses bilaterally. Neuro - patient is alert and oriented x4. Strength is 5/5 in both upper and lower extremities. Cranial nerves 2-12 are intact. Speech is clear. Psych - normal mood and affect. Patient is pleasant and cooperative. Skin - warm and dry. No rashes noted. Objective Data Vital Signs Vital Signs: Vital Signs - 24 hr 02/27/25 11:40 02/27/25 12:23 02/27/25 12:33 Temperature 98.0 F 98.8 F Pulse Rate 110 H 103 H Respiratory Rate 19 18 Blood Pressure 136/74 152/81 H 127/78 Pulse Oximetry 100 100 100 Oxygen Delivery Room Air 02/27/25 12:47 02/27/25 13:02 02/27/25 13:28 Temperature 98.4 F Pulse Rate 66 79 80 Respiratory Rate 15 21 H 18 Blood Pressure 106/61 111/68 116/100 H Pulse Oximetry 100 100 Oxygen Delivery 02/27/25 13:31 02/27/25 14:01 02/27/25 14:16 Temperature Pulse Rate 79 66 72 Respiratory Rate 12 21 H 16 Blood Pressure 112/67 129/71 118/68 Pulse Oximetry 100 100 Oxygen Delivery 02/27/25 14:23 02/27/25 14:46 02/27/25 15:48 Temperature 98.7 F Pulse Rate 65 66 69 Respiratory Rate 18 24 H 17 Blood Pressure 118/68 118/66 126/69 Pulse Oximetry 100 100 100 Oxygen Delivery 02/27/25 15:49 02/27/25 16:16 02/27/25 16:31 Temperature Pulse Rate 69 72 72 Respiratory Rate 18 16 19 Blood Pressure 126/69 118/70 118/73 Pulse Oximetry 100 100 100 Oxygen Delivery 02/27/25 21:22 02/27/25 22:16 02/28/25 06:00 Temperature 97.9 F 97 F L Pulse Rate 95 80 Respiratory Rate 20 16 Blood Pressure 127/65 121/77 Pulse Oximetry 99 100 Oxygen Delivery Room Air 02/28/25 07:31 Temperature 98 F Pulse Rate 87 Respiratory Rate 16 Blood Pressure 127/81 Pulse Oximetry 100 Oxygen Delivery Room Air Intake/Output Intake/Output: Intake & Output 02/25/25 02/26/25 02/27/25 02/28/25 23:59 23:59 23:59 23:59 Intake Total 1150 Balance 1150 Meds/Results Medications: Active Medications Generic Name Dose Route Start Last Admin Trade Name Hannah PRN Reason Stop Dose Admin Duloxetine HCl 90 mg 02/28/25 09:00 Duloxetine Hcl 30 Mg Capsule. PO DAILY NARCISA Lactated Ringer's 1,000 mls @ 150 mls/hr 02/28/25 07:30 02/28/25 07:34 Lr - Lactated Ringers Iv IV CONT 150 mls/hr .Q6H40M NARCISA Administration Home Med ( 60 mg 02/28/25 09:00 Lisdexamfetamine [ PO 03/30/25 08:59 Vyvanse] 60 Mg QAM NARCISA Capsule) Home Med (Brave 1 mg 02/28/25 09:00 Carbonate 300 Mg PO 03/30/25 08:59 Tablet Extended QAM NARCISA Release) Home Med (Brave 2 mg 02/27/25 23:55 02/28/25 00:08 Carbonate 300 Mg PO 03/29/25 23:54 2 mg Tablet Extended HS NARCISA Administration Release) Radiology Results: ITS Impressions Abdomen/Pelvis CT 02/27/25 13:39 IMPRESSION: Findings concerning for terminal ileitis and mesenteric adenitis, as detailed above. Labs Labs: Laboratory Results - last 24 hr 02/27/25 02/28/25 12:28 05:41 WBC 10.8 H 10.8 H RBC 4.92 4.81 Hgb 15.1 15.1 Hct 48.0 47.3 MCV 97.6 98.3 MCH 30.7 31.4 MCHC 31.5 L 31.9 L RDW 13.3 13.2 Plt Count 198 211 MPV 11.2 H 11.5 H Immature Gran % (Auto) 0.5 0.5 Neut % (Auto) 52.8 49.9 Lymph % (Auto) 35.2 40.1 [place] % (Auto) 7.9 6.4 Eos % (Auto) 3.0 2.5 Baso % (Auto) 0.6 0.6 Lymph # (Auto) 3.80 H 4.34 H [place] # (Auto) 0.9 H 0.7 H Eos # (Auto) 0.3 0.3 Baso # (Auto) 0.1 0.1 Abs Immat Gran (auto) 0.05 H 0.05 H Absolute Neuts (auto) 5.7 5.4 Absolute Nucleated RBC 0.000 0.000 Nucleated RBC % 0.0 0.0 % Immature Plt Fraction 5.9 PT 14.2 INR 1.1 APTT 25.8 Sodium 142 141 Potassium 3.3 L 3.9 Chloride 105 105 Carbon Dioxide 26 27 Anion Gap 11 9 BUN 4 L 6 L Creatinine 0.63 L 0.71 Estim Creat Clear Calc 152 136 Estimated GFR > 60 > 60 Glucose 66 90 Lactic Acid 1.8 Calcium 9.7 9.6 Total Bilirubin 0.3 0.6 AST 32 31 ALT 29 27 Alkaline Phosphatase 72 73 C-Reactive Protein < 0.5 Total Protein 7.8 7.5 Albumin 4.6 4.6 Quality VTE Prophylaxis VTE prophylaxis: mechanical ordered
[2025-02-28 08:06] VITALS: BP 74/35; PULSE 77; RESP 26; O2SAT 99
--- NOTE | 2025-02-28 08:10 | WPDGIPROGNO ---
Progress Note: A&P Assessment and Plan (1) Bloody diarrhea: Code(s): R19.7 - Diarrhea, unspecified Status: Acute Assessment and Plan: The patient does not have evidence of chronic colitis, although colonoscopy was not prepped, but rectal mucosa could be seen within normal limits. Recommend discharging home on levofloxacin orally for 3 days, and follow up in GI clinic. The patient has underlying inflammatory bowel disease, his clinical course will be more revealing and will follow him up in our clinic within 2-3 weeks. Subjective Date/time seen: 02/28/25 08:10 Objective Data Vital Signs Vital Signs: Vital Signs - 24 hr 02/27/25 11:40 02/27/25 12:23 02/27/25 12:33 Temperature 98.0 F 98.8 F Pulse Rate 110 H 103 H Respiratory Rate 19 18 Blood Pressure 136/74 152/81 H 127/78 Pulse Oximetry 100 100 100 Oxygen Delivery Room Air 02/27/25 12:47 02/27/25 13:02 02/27/25 13:28 Temperature 98.4 F Pulse Rate 66 79 80 Respiratory Rate 15 21 H 18 Blood Pressure 106/61 111/68 116/100 H Pulse Oximetry 100 100 Oxygen Delivery 02/27/25 13:31 02/27/25 14:01 02/27/25 14:16 Temperature Pulse Rate 79 66 72 Respiratory Rate 12 21 H 16 Blood Pressure 112/67 129/71 118/68 Pulse Oximetry 100 100 Oxygen Delivery 02/27/25 14:23 02/27/25 14:46 02/27/25 15:48 Temperature 98.7 F Pulse Rate 65 66 69 Respiratory Rate 18 24 H 17 Blood Pressure 118/68 118/66 126/69 Pulse Oximetry 100 100 100 Oxygen Delivery 02/27/25 15:49 02/27/25 16:16 02/27/25 16:31 Temperature Pulse Rate 69 72 72 Respiratory Rate 18 16 19 Blood Pressure 126/69 118/70 118/73 Pulse Oximetry 100 100 100 Oxygen Delivery 02/27/25 21:22 02/27/25 22:16 02/28/25 06:00 Temperature 97.9 F 97 F L Pulse Rate 95 80 Respiratory Rate 20 16 Blood Pressure 127/65 121/77 Pulse Oximetry 99 100 Oxygen Delivery Room Air 02/28/25 07:31 Temperature 98 F Pulse Rate 87 Respiratory Rate 16 Blood Pressure 127/81 Pulse Oximetry 100 Oxygen Delivery Room Air Intake/Output Intake/Output: Intake & Output 02/25/25 02/26/25 02/27/25 02/28/25 23:59 23:59 23:59 23:59 Intake Total 1150 72.5 Balance 1150 72.5 Meds/Results Medications: Active Medications Generic Name Dose Route Start Last Admin Trade Name Hannah PRN Reason Stop Dose Admin Duloxetine HCl 90 mg 02/28/25 09:00 Duloxetine Hcl 30 Mg Capsule. PO DAILY NARCISA Lactated Ringer's 1,000 mls @ 150 mls/hr 02/28/25 07:30 02/28/25 08:03 Lr - Lactated Ringers Iv IV CONT 150 mls/hr .Q6H40M NARCISA Infusion Home Med ( 60 mg 02/28/25 09:00 Lisdexamfetamine [ PO 03/30/25 08:59 Vyvanse] 60 Mg QAM NARCISA Capsule) Home Med (Shelly 1 mg 02/28/25 09:00 Carbonate 300 Mg PO 03/30/25 08:59 Tablet Extended QAM NARCISA Release) Home Med (Shelly 2 mg 02/27/25 23:55 02/28/25 00:08 Carbonate 300 Mg PO 03/29/25 23:54 2 mg Tablet Extended HS NARCISA Administration Release) Radiology Results: ITS Impressions Abdomen/Pelvis CT 02/27/25 13:39 IMPRESSION: Findings concerning for terminal ileitis and mesenteric adenitis, as detailed above. Labs Labs: Laboratory Results - last 24 hr 02/27/25 02/28/25 12:28 05:41 WBC 10.8 H 10.8 H RBC 4.92 4.81 Hgb 15.1 15.1 Hct 48.0 47.3 MCV 97.6 98.3 MCH 30.7 31.4 MCHC 31.5 L 31.9 L RDW 13.3 13.2 Plt Count 198 211 MPV 11.2 H 11.5 H Immature Gran % (Auto) 0.5 0.5 Neut % (Auto) 52.8 49.9 Lymph % (Auto) 35.2 40.1 [place] % (Auto) 7.9 6.4 Eos % (Auto) 3.0 2.5 Baso % (Auto) 0.6 0.6 Lymph # (Auto) 3.80 H 4.34 H [place] # (Auto) 0.9 H 0.7 H Eos # (Auto) 0.3 0.3 Baso # (Auto) 0.1 0.1 Abs Immat Gran (auto) 0.05 H 0.05 H Absolute Neuts (auto) 5.7 5.4 Absolute Nucleated RBC 0.000 0.000 Nucleated RBC % 0.0 0.0 % Immature Plt Fraction 5.9 PT 14.2 INR 1.1 APTT 25.8 Sodium 142 141 Potassium 3.3 L 3.9 Chloride 105 105 Carbon Dioxide 26 27 Anion Gap 11 9 BUN 4 L 6 L Creatinine 0.63 L 0.71 Estim Creat Clear Calc 152 136 Estimated GFR > 60 > 60 Glucose 66 90 Lactic Acid 1.8 Calcium 9.7 9.6 Total Bilirubin 0.3 0.6 AST 32 31 ALT 29 27 Alkaline Phosphatase 72 73 C-Reactive Protein < 0.5 Total Protein 7.8 7.5 Albumin 4.6 4.6
[2025-02-28 08:16] VITALS: BP 93/56; PULSE 66; RESP 19; O2SAT 100
[2025-02-28 08:26] VITALS: BP 115/77; PULSE 80; RESP 18; O2SAT 100
[2025-02-28] MEDS: LITHIUM CARBONATE 300 MG 1 EACH PO (09:19)
[2025-02-28] MEDS: LISDEXAMFETAMINE 60 MG 60 EACH PO (09:19)
--- NOTE | 2025-02-28 10:22 | PM.DS ---
DS: Admitting Diagnosis Discharge Date 02/28/2025 Admitting Diagnosis Abdominal pain, blood diarrhea DS: Discharge Diagnosis Discharge Diagnosis (1) Abdominal pain: Code(s): R10.9 - Unspecified abdominal pain Status: Acute (2) Bipolar 1 disorder: Code(s): F31.9 - Bipolar disorder, unspecified Status: Acute (3) Attention-deficit hyperactivity disorder, combined type: Code(s): F90.2 - Attention-deficit hyperactivity disorder, combined type Status: Acute (4) Bloody diarrhea: Code(s): R19.7 - Diarrhea, unspecified Status: Acute DS: Summary Hospital Course Reason for hospitalization: Abdominal pain, bloody diarrhea Hospital Course: Barry Schofield is a 24-year-old male with a past medical history of anxiety, bipolar 1 disorder, who presents to the hospital with a 1 day history of bloody stools and abdominal pain. He is accompanied by his mother. Patient states that he has been experiencing generalized abdominal discomfort for the past year, but has not been seen by GI specialist. He has mentioned this problem to his primary care physician but has not been worked up for this issue. The bloody stools is a new development and started 1 day ago. He describes it as loose, mucous-like stools. He states that his abdominal pain is relieved upon passage of the stool but comes back after few hours. States that it is a achy pain all throughout his abdomen, worse in the left lower quadrant. Denies any history of GI issues. Denies any chest pain, shortness of breath, nausea/vomiting, testicular pain or urinary changes. Denies any recent travel, known sick contacts, or fevers. Patient is adopted, family history is unknown. In ED: 126/69, 69 HR, 18 RR, 100% room air WBC 10.8, H&H 15.1/48.0, Lymph # 3.8, otherwise unremarkable CBC. Potassium 3.3, creatinine 0.63, otherwise unremarkable CMP CRP pending CT abdomen/pelvis: Findings concerning for terminal ileitis and mesenteric adenitis, as detailed above. Gastroenterology consulted regarding abdominal pain/terminal ileitis and subsequent bloody diarrhea. Agree with no etiology likely including infectious pathogens such LS/salmonella/invasive E coli as well as IBD. CT scan suggest Crohn's but given the acute presentation without systemic symptoms, acute infectious etiology more likely. Colonoscopy was obtained, rectal mucosa within normal limits but colonoscopy was not properly prepped so likely patient will benefit from follow-up in 2-3 weeks. Bloodwork and vital signs unremarkable or within normal limits. Will discharge patient levofloxacin for 3 days and have him follow-up with GI in 2-3 weeks. Patient hemodynamically stable for discharge at this time. Status at Discharge Functional status at discharge: independent ambulation Overall status at discharge: patient is back to baseline Time Spent with Patient Time attestation: Total time spent providing and/or coordinating discharge services: 36 Exam Narrative: Gen - well appearing male in no acute respiratory distress who is nontoxic-appearing lying semi recumbent in bed HEENT - normocephalic. Atraumatic. Pupils equal round and reactive. Extraocular motions intact. Sclera clear and anicteric. Nares patent. Oropharynx was clear. Moist mucous membranes. Neck - neck was supple. No dominant adenopathy, thyromegaly or masses. 2+ carotid upstrokes without bruits. Chest - lungs are clear to auscultation bilaterally. No wheezes or crackles. CV - heart was regular rate and rhythm. S1-S2. No murmurs gallops or rubs. Abd -tenderness to palpation to entire abdominal wall, worse in left lower quadrant. abdomen was soft. Nondistended. Positive bowel sounds. No organomegaly or masses. Ext - no clubbing, cyanosis or edema. 2+ DP pulses bilaterally. Neuro - patient is alert and oriented x4. Strength is 5/5 in both upper and lower extremities. Cranial nerves 2-12 are intact. Speech is clear. Psych - normal mood and affect. Patient is pleasant and cooperative. Skin - warm and dry. No rashes noted. DS: Data Data Completed and Pending Labs on day of discharge: Labs from last 24 hours 02/28/25 02/27/25 05:41 12:28 WBC 10.8 H 10.8 H RBC 4.81 4.92 Hgb 15.1 15.1 Hct 47.3 48.0 MCV 98.3 97.6 MCH 31.4 30.7 MCHC 31.9 L 31.5 L RDW 13.2 13.3 Plt Count 211 198 MPV 11.5 H 11.2 H Immature Gran % (Auto) 0.5 0.5 Neut % (Auto) 49.9 52.8 Lymph % (Auto) 40.1 35.2 [place] % (Auto) 6.4 7.9 Eos % (Auto) 2.5 3.0 Baso % (Auto) 0.6 0.6 Lymph # (Auto) 4.34 H 3.80 H [place] # (Auto) 0.7 H 0.9 H Eos # (Auto) 0.3 0.3 Baso # (Auto) 0.1 0.1 Abs Immat Gran (auto) 0.05 H 0.05 H Absolute Neuts (auto) 5.4 5.7 Absolute Nucleated RBC 0.000 0.000 Nucleated RBC % 0.0 0.0 % Immature Plt Fraction 5.9 PT 14.2 INR 1.1 APTT 25.8 Sodium 141 142 Potassium 3.9 3.3 L Chloride 105 105 Carbon Dioxide 27 26 Anion Gap 9 11 BUN 6 L 4 L Creatinine 0.71 0.63 L Estim Creat Clear Calc 136 152 Estimated GFR > 60 > 60 Glucose 90 66 Lactic Acid 1.8 Calcium 9.6 9.7 Total Bilirubin 0.6 0.3 AST 31 32 ALT 27 29 Alkaline Phosphatase 73 72 C-Reactive Protein < 0.5 Total Protein 7.5 7.8 Albumin 4.6 4.6 Discharge Plan Discharge Attending physician on discharge: Ashu Lin Consulting providers: Jose Tate Discharging Clinician: Jose Tate Anticipated Discharge Date/Time: 02/28/25 10:18 Patient Disposition: Home Activity: as tolerated Diet: as tolerated Discharge Instructions: Discharge disposition: Home, stable Take medications as prescribed. You will be prescribed to levofloxacin for 3 days. Monitor blood pressures Take caution while standing, rising, or moving Change positions slowly taking a break between each position change If you standing feel dizzy sit back down and take a break Encouraged to continue with yearly vaccinations Return to the emergency department if he developed sudden shortness of breath, chest pain, nausea, vomiting, upset stomach or intractable diarrhea Return to the emergency department if you develop fever greater than 101.5 Follow-up with the primary care physician within 1-2 [address] up [address]. Ya of Gastroenterology in 2 weeks. Thank you for [facility] for your healthcare needs Patient Instructions: Antibiotic Form Patient Language: Emirati Stand Alone Forms: General Discharge Information Follow-up/Referrals: Leodan Ya MD [Physician] - Torie Mendes APRN [Primary Care Provider] - Discharge Medications: New levofloxacin 500 mg tablet 500 mg PO DAILY Qty: 3 0RF Continued multivitamin Tablet 1 tablet PO DAILY Zyrtec 10 mg capsule 10 mg PO HS duloxetine 30 mg capsule,delayed release(DR/EC) See Rx Instructions .ROUTE .COMPLEX Qty: 270 2RF Dose Instruction: TAKE 3 CAPSULES BY MOUTH ONCE DAILY Rx Instructions: TAKE 3 CAPSULES BY MOUTH ONCE DAILY lithium carbonate 300 mg tablet extended release See Rx Instructions PO .COMPLEX Qty: 270 1RF Rx Instructions: orally 1 tab qam, 2 tabs qpm; lisdexamfetamine [Vyvanse] 60 mg capsule 60 mg PO QAM Qty: 30 0RF Date of admission: 02/27/25 17:06 Primary Care Provider: Torie Mendes Admitting Provider: Ashu Lin Attending physician on admission: Ashu Lin Condition: Stable Quality VTE Prophylaxis VTE prophylaxis: mechanical ordered
== END 2025-02-28 10:55 | disposition home or self-care (01) ==
LOC: ANHED 15:40 → ANH3MEDSUR 18:52
PROVIDERS: Emergency Medicine; Internal Medicine Gastroenterology; Physician Assistant; Admitting Provider Family Medicine; Emergency Provider Emergency Medicine; PCP Nurse Practitioner Family; Visit Provider Family Medicine
PROC: 0DJD8ZZ Inspection of Lower Intestinal Tract, Via Natural or Artificial Opening Endoscopic (ICD-10-PCS; CPT 45378; principal; 2025-02-28 14:00)
DX: K50.00 Crohn's disease of small intestine without complications (principal); F17.290 Nicotine dependence, other tobacco product, uncomplicated; F31.9 Bipolar disorder, unspecified; F90.2 Attention-deficit hyperactivity disorder, combined type
CPT/HCPCS: 45330; 36415; 74177; 80053; 83605; 85025; 85055; 85610; 85730; 86140; 96361; 96365; 96366; 96375; 99285; A9270; G0378; J1956; J2003; J2704; J3010; J7030; J7120; Q9967

== ENCOUNTER 2025-05-01 08:47 | Outpatient (NON) | payer OTHER, SELFPAY ==
--- OUTSIDE RECORDS SUMMARY | 2025-05-01 09:03 | XMS_ITS | Encounter Summary ---
Author Organization [facility] Address [address] [place] [address] Care Team Providers Care Beverage Sales Consultant Name Role Phone Felisa Cooper MD Primary Care Provider Nickie gamble Reason for Visit * Reason Onset Date Comments Medication Request 02/09/2018 Encounter Details Date Type Department Care Team (Late st Contact Info) Description 02/09/2018 Telephone [facility] Pediatric[facility] - [facility] [place] [address] Michelle Richmond Medication Request Social History Tobacco Use Types Packs/Day Years Used Date Smoking Tobacco: Never Assessed Sex and Gender Information Value Date Recorded Sex Assigned at Not on file Legal Sex Male 6:59 AM [employer] Gender Identity Not on file Sexual Orientation Not on file documented as of this encounter Miscellaneous Notes * Telephone Encounter - Felisa Cooper MD - 02/10/2018 12:43 PM CDT Rx for vyvanse 60mg daily orderd X3 for 3 month supply, mailed to home address. FU at [facility]. * Telephone Encounter - Michelle Richmond - 02/09/2018 12:48 PM CDT Mom is calling requesting a refill for Rx lisdexamfetamine (VYVANSE) 60 MG capsule to be mailed to her home at the address of: [address] [place] [id number] Next appt on 03/18/[address] Cooper documented in this encounter Plan of Treatment Not on file documented as of this encounter Visit Diagnoses Not on filedocumented in this encounter Additional Health Concerns Infection Onset Date Last Indicated Resolved Time COVID-19 Under Investigation 01/03/2020 01/03/2020 01/04/2020 12:34 AM CDT documented as of this encounter Care Teams Beverage Sales Consultant Relationship Specialty Start Date End Date Felisa Cooper MD Need new address PCP - General 11/28/10 documented as of this encounter
--- OUTSIDE RECORDS SUMMARY | 2025-05-01 09:03 | XMS_ITS | Encounter Summary ---
Author Organization [facility] Address [address] [place] [address] Care Team Providers Care Hair Designer Name Role Phone Felisa Cooper MD Primary Care Provider Nickie gamble Reason for Visit * Reason Onset Date Comments Question 04/26/2013 Encounter Details Date Type Department Care Team (Late st Contact Info) Description 04/26/2013 Telephone [facility] Pediatrics - [facility] Pediatrics [facility] [place] [address] Felisa Cooper MD Need new address Question Social History Tobacco Use Types Packs/Day Years Used Date Smoking Tobacco: Never Assessed Sex and Gender Information Value Date Recorded Sex Assigned at Not on file 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
--- OUTSIDE RECORDS SUMMARY | 2025-05-01 09:03 | XMS_ITS | Encounter Summary ---
Author Organization [facility] Address [address] [address] Care Team Providers Care Numerical Control Programmer Name Role Phone Felisa Cooper MD Primary Care Provider Nickie gamble Reason for Visit * Reason Onset Date Comments Medication Problem 01/11/2018 Encounter Details Date Type Department Care Team (Late st Contact Info) Description 01/11/2018 Telephone [facility] - [facility] Pediatrics [facility] [place] [address] Michelle Richmond Medication Problem Social History Tobacco Use Types Packs/Day Years Used Date Smoking Tobacco: Never Assessed Sex and Gender Information Value Date Recorded Sex Assigned at Not on file 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 Preferred alternatives include: LEVA ALBUTEROL AER ACT, PROAIR HFA AER, PROAIR REPSI AER. Last [facility] 03-18-2017 documented in this encounter Plan of Treatment Not on file documented as of this encounter Visit Diagnoses Not on filedocumented in this encounter Additional Health Concerns Infection Onset Date Last Indicated Resolved Time COVID-19 Under Investigation 01/03/2020 01/03/2020 01/04/2020 12:34 AM CDT documented as of this encounter Care Teams Numerical Control Programmer Relationship Specialty Start Date End Date Felisa Cooper MD Need new address PCP - General 11/28/10 documented as of this encounter
--- OUTSIDE RECORDS SUMMARY | 2025-05-01 09:03 | XMS_ITS | Encounter Summary ---
Author Organization [facility] Address [address] [facility] [place] [address] Care Team Providers Care Pipe Joints Supervisor Name Role Phone Felisa Cooper MD Primary Care Provider Nickie gamble Encounter Details Date Type Department Care Team (Late st Contact Info) Description 07/14/2018 Telephone [facility] - [facility] [place] [address] Ann Agee Social History Tobacco Use Types Packs/Day Years Used Date Smoking Tobacco: Never Assessed Sex and Gender Information Value Date Recorded Sex Assigned at Not on file 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 LE SOLUTIONS ARCHITECT * Telephone Encounter - Ann Agee - 07/14/2018 12:01 PM CST Barry Schofield's, 18 y.o. male, mother is calling with concerns but would not any details just wanted to talk to Dr. Cooper about [place] Instructed that provider will call back at their earliest convenience. LE SOLUTIONS ARCHITECT documented in this encounter Plan of Treatment Not on file documented as of this encounter Visit Diagnoses Not on filedocumented in this encounter Additional Health Concerns Infection Onset Date Last Indicated Resolved Time COVID-19 Under Investigation 01/03/2020 01/03/2020 01/04/2020 12:34 AM CDT documented as of this encounter Care Teams Pipe Joints Supervisor Relationship Specialty Start Date End Date Felisa Cooper MD Need new address PCP - General 11/28/10 documented as of this encounter
--- OUTSIDE RECORDS SUMMARY | 2025-05-01 09:03 | XMS_ITS | Clinical Summary ---
Author Organization [facility] Address [address] [place] [id number] Care Team Providers Care Analyst Name Role Phone Unavailable Primary Care Provider [...] - 19+ 3-dose series) 2021 COVID-19 Vaccine (1 - 2023-2 5 season) 2025 Meningococcal Vaccine Aged Out No chriss cecily [...]
--- OUTSIDE RECORDS SUMMARY | 2025-05-01 09:03 | XMS_ITS | Clinical Summary ---
Author Organization [facility] Address [address] [facility] [place] [address] Care Team Providers Care Aluminum Pourer Name Role Phone Felisa Cooper MD Primary Care Provider Nickie gamble Source Comments [facility],non-owned Affiliates and Associated Physician Practices is amultiple site organization consisting of ambulatory clinics and hospital sitesin [place], [place], [place] and [place]. This disclosure is being madepursuant to the Care Everywhere program and may not contain all information available regarding this patient. Last updated 18.[facility] Allergies Active Allergy Reactions Criticality Noted Date [...] 10/12/2019 Assessment & Plan (10/12/2019 2:45 PM CYLINDER BLOCK HOLE RELINER): Assessment: Patient c/o vomiting daily one to [...] was increased 3-4 weeks ago). Plan: - Russell diet, hold dairy foods, monitor sx's and [...] 06/01/2019 Assessment & Plan (07/06/2019 2:10 PM CYLINDER BLOCK HOLE RELINER): Pt with recent [place] inpatient Tx for SI, anxiety, anger management, now doing well with outpatient Tx. He is followed by psychiatry (in [place]), private counselor (in [place]), and school psychologist. He was dx'd with [...] became more emotional. He was taken to [facility] for inpatient treatment and was there for [...] 04/03/2016 Assessment & Plan (10/09/2016 12:15 PM CYLINDER BLOCK HOLE RELINER): Pt saw CT surgery 03/2016, CXR wnl, [...] albuterol. Assessment & Plan (10/09/2016 12:17 PM CYLINDER BLOCK HOLE RELINER): Cont prn use for sx's, also rec [...] 12/03/2010 Assessment & Plan (07/06/2019 2:13 PM CYLINDER BLOCK HOLE RELINER): Pt was recently dx'd with bipolar d/o [...] months. Family lives [place] [address] away in [place], May call for RF in 3 months [...] is failing most of his classes currently ([place], math, science). He denies medication SE's. He [...] months. Assessment & Plan (09/07/2018 12:58 PM CYLINDER BLOCK HOLE RELINER): Pt was off vyvanse last summer, restarted [...] lives about 45 min away), also recommend mixer dry food products at school to receive more 1 on 1 instruction to catch up with material that pt struggled with the last few weeks. FU for [facility] and ADHD FU in 3 months. Assessment & Plan (10/09/2016 12:27 PM CYLINDER BLOCK HOLE RELINER): Doing very well in school and home [...] months. Assessment & Plan (10/03/2015 9:36 AM CYLINDER BLOCK HOLE RELINER): Behavior and school are doing well. Decreased concentration while doing homework in the afternoon. No current side effects. - Continue 60 mg vyvanse daily - Add 5 mg ritalin in the afternoon to help with homework time - Mom will call if any problems. 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 Rx for bactroban ordered for tid use X1 week. FU if pers sx's. URI (upper respiratory infection) 10/09/2016 10/23/2016 Assessment & Plan (10/09/2016 12:26 PM CYLINDER BLOCK HOLE RELINER): Pt has had nasal congestion and some thick d/c for last 2 weeks but improving now. No hx of fever, had mild ST last week but resolved now, pt with normal activity/sleep/PO. If increased/pers sx's may consider Abx Tx for sinusitis but cont supportive care for now. Costochondral chest pain 10/03/2015 Assessment & Plan (10/03/2015 9:37 AM CYLINDER BLOCK HOLE RELINER): Lower rib pain that increases with deep breaths and palpation. - Ibuprofen PRN for pain Periumbilical abdominal pain 05/23/2015 10/09/2016 Overview (05/24/2015): Assessment & Plan (10/03/2015 9:38 AM CYLINDER BLOCK HOLE RELINER): Mild abdominal pain and frequent soft stools. [...] meds. Assessment & Plan (2014 12:44 PM CYLINDER BLOCK HOLE RELINER): No known trauma and pt has not [...] Pt was almost 13 years at last [facility] 03/2013 so immunizations not given. Will give Tdap, menactra, HPV today. 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 Discussed with patient and his mother that [...] OV FU for ADHD in 3- 6months. Encounters Date Type Department Care Team Description 03/30/2025 Lab Requisition [facility] - DermPath Lab [address] [place] [address] Ron Samuel MD Other follicular cysts of the skin and subcutaneous tissue from Last 3 Months Immunizations Immunization Administration Dates Next Due DTaP [...] on file Legal Sex Male 6:59 AM CYLINDER BLOCK HOLE RELINER Gender Identity Not on file Sexual Orientation [...] Health Maintenance Due Date Last Done Comments PNEUMOCOCCAL VACCINE (1 of 1 - PPSV23, PCV20, or PCV21) 2008 09/21/2003, 2002, 2002, Additional history exists HIV SCREENING 2017 HEPATITIS C SCREENING 06/24/2020 DTAP/TDAP/TD VACCINES (7 - Td or Tdap) 12/15/2023 12/14/2013, 07/28/2010, 09/21/2003, Additional history exists DEPRESSION SCREENING 08/24/2024 04/06/2019, 03/18/2018, 03/18/2017, Additional history exists COVID-19 VACCINE ( season) 2025 INFLUENZA VACCINE (#1) 2025 9, 2014, 05/19/2012, Additional history exists ZOSTER VACCINE (1 of 2) 2052 HIB VACCINE Aged Out 2002, 11/2002, 2002, Additional history exists No longer eligible based on patient's age to complete this topic HEPATITIS B VACCINE Completed 01/05/2003, 2002, 2002 HPV VACCINE Completed 2014, 04/2014, 12/14/2013 MENINGOCOCCAL GROUPS A/C/Y/W VACCINE Completed 04/06/2019, 12/14/2013 MENINGOCOCCAL (Group B) VACCINE SHARED DECISION-MAKING Completed 07/06/2019, 04/06/2019 Procedures Procedure Name Priority Date/Time Associated Diagnosis Comments DERMATOPATHOLOGY Routine 03/30/2025 1:30 PM CDT Other follicular cysts of the skin and subcutaneous tissue from Last 3 Months Results * DERMATOPATHOLOGY (03/30/2025 1:30 PM CDT) Case Report Dermatopathology Report Case: [id number] Authorizing Provider: Ron Samuel MD Collected: 03/30/2025 01:30 PM Ordering Location: [facility] - Received: 03/31/2025 01:31 PM DermPath Lab Pathologist: Regine De La Cruz MD Specimen: Skin, right anti-tragus 12:59 PM CDT DERMATOPATHOLOGY LABORATORY Final Diagnosis Specimen A. SKIN, right anti-tragus: EPIDERMOID CYST (L72.0) PRESENT AT MARGIN 12:59 PM CDT DERMATOPATHOLOGY LABORATORY at 1259 CDT Clinical History Cyst Check margins 08/11/202 5 12:59 PM CDT DERMATOPATHOLOGY LABORATORY Gross Description Specimen A: Received is one formalin filled container labeled with the patient's name and designated right anti-tragus. The specimen consists of a 6x3x7 mm piece of skin. No ink. The specimen is bisected lengthwise and submitted in 1 cassette. Jar 0. 5 12:59 PM CDT DERMATOPATHOLOGY LABORATORY Microscopic Description Specimen A. SKIN, right anti-tragus: Within the dermis, there is a space lined by epithelium that resembles normal epidermis and the infundibular portion of the hair follicle. This lesion is present at the margin of the specimen. 12:59 PM CDT DERMATOPATHOLOGY LABORATORY Disclaimer An external and internal positive and negative controls are appropriate for the histochemical, immunohistochemical and immunofluorescence stain(s) in this case (if any), except where stated explicitly. The performance characteristics of the stain(s) cited in this report were developed and its performance characteristic determined by the Dermatopathology Laboratory at [facility], directed by Dr. Iglesia Escobar. These tests need not be, and therefore are not, approved by the [place] Food and Drug Administration. The tests are used for clinical purposes. Billing Codes Specimen Charges Stain Charges 32416 1 12:59 PM CDT DERMATOPATHOLOGY LABORATORY Embedded Images 12:59 PM CDT DERMATOPATHOLOGY LABORATORY Pathology/Cytolo gy TISSUE SPECIMEN FROM SKIN / Unknown 03/30/2025 1:30 PM CDT 03/31/2025 1:31 PM CDT Ron Samuel MD LAB - PATHOLOGY/CYTOLOGY JAHAIRA WALKER Final Result DERMATOPATHOLOGY LABORATORY [facility] - Department of Dermatology [facility] Medicine [address] [place] [address], [address] [place] [address], [facility] [phone] from Last 3 Months Insurance [employer] Care Teams Aluminum Pourer Relationship Specialty Start Date End Date Felisa Cooper MD Need new address PCP - General 11/28/10
--- OUTSIDE RECORDS SUMMARY | 2025-05-01 09:03 | XMS_ITS | Encounter Summary ---
Author Organization [facility] Address [address] [place] [address] Care Team Providers Care Catcher Filter Tip Name Role Phone Felisa Cooper MD Primary Care Provider Nickie gamble Encounter Details Date Type Department Care Team (Late st Contact Info) Description 03/30/2025 Lab Requisition [facility] - DermPath Lab [address] [facility] [place] [id number] Ron Samuel MD [facility] DERMATOLOGY [address] [place] [phone] Other follicular cysts of the skin and subcutaneous tissue Social History Tobacco Use Types Packs/Day Years [...] on file 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 Gender Identity Not on file Sexual Orientation Not on file documented as of this encounter Plan of Treatment Not on file documented as of this encounter Procedures Procedure Name Priority Date/Time Associated Diagnosis Comments DERMATOPATHOLOGY Routine 03/30/2025 1:30 PM CDT Other follicular cysts of the skin and subcutaneous tissue documented in this encounter Results * DERMATOPATHOLOGY (03/30/2025 1:30 PM CDT) Case Report Dermatopathology Report Case: [id number] Authorizing Provider: Ron Samuel MD Collected: 03/30/2025 01:30 PM Ordering Location: [facility] - Received: 03/31/2025 01:31 PM DermPath Lab Pathologist: Regine De La Cruz MD Specimen: Skin, right anti-tragus 12:59 PM CDT DERMATOPATHOLOGY LABORATORY Final Diagnosis Specimen A. SKIN, right anti-tragus: EPIDERMOID CYST (L72.0) PRESENT AT MARGIN 12:59 PM CDT DERMATOPATHOLOGY LABORATORY at 1259 CDT Clinical History Cyst Check margins 12:59 PM CDT DERMATOPATHOLOGY LABORATORY Gross Description Specimen A: Received is one formalin filled container labeled with the patient's name and designated right anti-tragus. The specimen consists of a 6x3x7 mm piece of skin. No ink. The specimen is bisected lengthwise and submitted in 1 cassette. Jar 0. 12:59 PM CDT DERMATOPATHOLOGY LABORATORY Microscopic Description [...] characteristic determined by the Dermatopathology Laboratory at [facility], directed by Dr. Iglesia Escobar. These tests need not be, and therefore are not, approved by the [place] Food and Drug Administration. The tests are used for clinical purposes. Billing Codes Specimen Charges Stain Charges 22944 1 5 12:59 PM CDT DERMATOPATHOLOGY LABORATORY Embedded Images 5 12:59 PM CDT DERMATOPATHOLOGY LABORATORY Pathology/Cytolo gy TISSUE SPECIMEN FROM SKIN / Unknown 03/30/2025 1:30 PM CDT 03/31/2025 1:31 PM CDT Ron Samuel MD LAB - PATHOLOGY/CYTOLOGY JAHAIRA WALKER Final Result DERMATOPATHOLOGY LABORATORY [facility] - Department of Dermatology [facility] Medicine [address] [place] [address], [address] [phone] documented in this encounter Visit Diagnoses Diagnosis Other follicular cysts of the skin and subcutaneous tissue documented in this encounter Care Teams Catcher Filter Tip Relationship Specialty Start Date End Date Felisa Cooper MD Need new address PCP - General 11/28/10 documented as of this encounter
--- OUTSIDE RECORDS SUMMARY | 2025-05-01 09:03 | XMS_ITS | Encounter Summary ---
Author Organization [facility] Address [address] [place] [address] Care Team Providers Care Buildings Painter Name Role Phone Felisa Cooper MD Primary Care Provider Nickie gamble Reason for Visit * Reason Onset Date Comments MEDICATION REFILL 07/27/2012 Encounter Details Date Type Department Care Team (Late st Contact Info) Description 07/27/2012 Telephone [facility] - [facility] [place] [address] Felisa Cooper MD Need new address MEDICATION REFILL Social History Tobacco Use Types Packs/Day Years Used Date Smoking Tobacco: Never Assessed Sex and Gender Information Value Date Recorded Sex Assigned at Not on file Legal Sex Male 6:59 AM 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 I called mother and left message for her to make appt a few weeks before last dose in order to get refills. UM PAN OPERATOR * Telephone Encounter - Pappademos, Dolley - 07/27/2012 9:23 AM CST Needs refill on vyvanase Please mail : [place] [phone] for 3mos. UM PAN OPERATOR documented in this encounter Plan of Treatment Not on file documented as of this encounter Visit Diagnoses Diagnosis ADHD (attention deficit hyperactivity disorder)- Primary Attention deficit disorder with hyperactivity documented in this encounter Additional Health Concerns Infection Onset Date Last Indicated Resolved Time COVID-19 Under Investigation 01/03/2020 01/03/2020 01/04/2020 12:34 AM CDT documented as of this encounter Care Teams Buildings Painter Relationship Specialty Start Date End Date Felisa Cooper MD Need new address PCP - General 11/28/10 documented as of this encounter
--- OUTSIDE RECORDS SUMMARY | 2025-05-01 09:03 | XMS_ITS | Encounter Summary ---
Author Organization [facility] Address [address] [address] Care Team Providers Care Machinist Bench Name Role Phone Felisa Cooper MD Primary Care Provider Nickie gamble Encounter Details Date Type Department Care Team (Late st Contact Info) Description 07/14/2018 Telephone [facility] - [facility] [address] [place] [id number] [address] Social History Tobacco Use Types Packs/Day Years Used Date Smoking Tobacco: Never Assessed Sex and Gender Information Value Date Recorded Sex Assigned at Not on file Legal Sex Male 6:59 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
--- OUTSIDE RECORDS SUMMARY | 2025-05-01 09:03 | XMS_ITS | Clinical Summary ---
Author Organization [facility] Care Team Providers Care Artificial Flower Maker Name Role Phone Unavailable Primary Care Provider Unavailabl e Social History Tobacco Use Types Packs/Day Years Used Date Smoking Tobacco: Never Assessed Sex and Gender Information Value Date Recorded Sex Assigned at Not on file Legal Sex Male 12:24 PM PAUNCH TRIMMER Gender Identity Not on file Sexual Orientation Not on file Plan of Treatment Health Maintenance Due Date Last Done Comments Hepatitis C Virus (HCV) Screening 2002 TdaP Immunization 2002 Human Papillomavirus (HPV) Immunization (1 - Male 3-dose series) 2017 Meningococcal B Immunization (1 of 2 - Standard) 2018 Hepatitis B Immunization (1 of 3 - 19+ 3-dose series) 2021 SARS-COV-2 Immunization (2 - season) 2024 12/01/2020 Influenza Immunization (#1) 2025 Respiratory Syncytial Virus (RSV) Immunization (Adult) (1 [...]
[2025-05-04 15:09] LABS: Calprotectin, Fecal 97 ug/g (0-120)
== END 2025-05-01 08:48 | disposition home or self-care (01) ==
LOC: ANHLAB 08:51
PROVIDERS: PCP Nurse Practitioner Family; Visit Provider Nurse Practitioner Family
DX: K50.00 Crohn's disease of small intestine without complications (principal)
CPT/HCPCS: 83993